=== PATIENT | female | born 1950 | race Caucasian/White ===

== ENCOUNTER 2022-02-26 14:36 | Outpatient (CLI) | payer MEDICARE, OTHER, SELFPAY ==
--- NOTE | ~2022-02-26 | DEXA_ITS ---
Bone Density Report Name: DIANN CAT Age: 71 Sex: Female Ethnicity: White Date of : 1950 Indication: postmenopausal; screening for osteoporosis; height loss; Referring Provider: NICOLE, MELQUIADES Study: Bone densitometry was performed. Exam Date: February 26, 2022 Accession number: [id number] Bone Density: Region BMD T-score Z-score Classification AP Spine(L1-L4) 0.930 -1.1 1.1 Osteopenia Femoral Neck (Left) 0.824 -0.2 1.6 Normal Total Hip (Left) 0.984 0.3 1.9 Normal Femoral Neck (Right) 0.815 -0.3 1.5 Normal Total Hip (Right) 0.970 0.2 1.7 Normal Total Hip Mean 0.977 0.3 1.8 Normal World Health Organization criteria for BMD impression classify patients as: Normal (T-score at or above -1.0), Osteopenia (T-score between -1.0 and -2.5), or Osteoporosis (T-score at or below -2.5). 10-year Fracture Risk(1): Major Osteoporotic Fracture 7.0% Hip Fracture 0.5% Reported Risk Factors: [place] (), Neck BMD=0.815, BMI=37.5 (1) FRAX(R) Version 3.08. Fracture probability calculated for an untreated patient. Fracture probability may be lower if the patient has received treatment. Clinical Information Provided by Patient: Has used the following medications: Vitamin D Patient maximum height was 62 Menopause Age: 51 No regular weight bearing exercise Onset of menses at age 13 Number of children 3 Impression: The patient has low bone mass, based on the Total Spine T-score. The patient has an estimated ten-year risk of hip fracture of 0.5% and an estimated ten-year risk of major fracture of 7%, based on the WHO FRAX algorithm. Discussion: BONE DENSITY IS LOW AT ONE OR MORE SKELETAL SITES. This patient's lowest T-score is low at one or more skeletal sites. It meets the World Health Organization's (WHO) criteria for ?low bone mass? (T-score between -1.0 and -2.5). The patient's 10-year risk of fracture as calculated by FRAX is less than the threshold where pharmacological therapy is recommended by the National Osteoporosis Foundation (NOF). However, all treatment decisions require clinical judgment and consideration of individual patient factors, including patient preferences, comorbidities, previous drug use, risk factors not captured in the FRAX model (e.g., frailty, falls, vitamin D deficiency, increased bone turnover, interval significant decline in bone density) and possible under or overestimation of fracture risk by FRAX. The patient should follow a healthful lifestyle (good nutrition with adequate calcium and vitamin D, and appropriate weight-bearing exercise). Follow-Up: Consider repeating this study in 2 to 3 years to reassess this patient's status, or sooner if there is some new clinical indication. Reported by: [facility] on 02/26/2022 2:58:00 PM.
== END 2022-02-26 14:37 | disposition home or self-care (01) ==
PROVIDERS: PCP Internal Medicine; Visit Provider Internal Medicine
DX: Z78.0 Asymptomatic menopausal state (principal); M85.88 Other specified disorders of bone density and structure, other site
CPT/HCPCS: 77080

== ENCOUNTER 2024-08-27 13:29 | Emergency (ER) | payer OTHER, MEDICARE, SELFPAY ==
--- NOTE | ~2024-08-27 | XR_ITS ---
XR facial bones min 3V DATE: 08/27/2024 14:36 INDICATION: Fall, injury TECHNIQUE: 4 views COMPARISON: None FINDINGS: No facial fracture. The paranasal sinuses are normally developed and aerated. The sella turcica appea rs normal. Normal alignment at included C1-C3. IMPRESSION: No evidence of facial fracture Reviewed, dictated and finalized at location A.
--- NOTE | ~2024-08-27 | XR_ITS ---
XR hand LT min 3V DATE: 08/27/2024 14:36 INDICATION: Fall. Hand injury, pain TECHNIQUE: 3 views COMPARISON: None FINDINGS: There is a comminuted fracture of the base of the fifth metacarpal bone with minimal medial displacement. No other fracture or dislocation is detected. There is polyarticular osteoarthritis involving particularly the first carpometacarpal joint, also th e triscaphe and multiple interphalangeal joints. IMPRESSION: Comminuted fracture of the base of the fifth metacarpal bone Polyarticular osteoarthritis Reviewed, dictated and finalized at location A.
--- NOTE | ~2024-08-27 | XR_ITS ---
XR shoulder LT min 2V DATE: 08/27/2024 14:36 INDICATION: Fall. Shoulder injury, pain TECHNIQUE: Neer and AP views COMPARISON: None FINDINGS: Normal alignment at the acromioclavicular and glenohumeral joints. No fracture or dislocati on, periosteal reaction or bone destruction or abnormal soft tissue calcification. IMPRESSION: Negative Reviewed, dictated and finalized at location A. IMPRESSION: Negative
[2024-08-27 13:46] VITALS: BP 170/58; PULSE 62; RESP 16; TEMP 36.9; O2SAT 98
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
[2024-08-27] MEDS: ACETAMINOPHEN 500 MG TABLET 1000 MG PO (14:00)
== END 2024-08-27 16:15 | disposition home or self-care (01) ==
PROVIDERS: Emergency Provider Nurse Practitioner Family; PCP Internal Medicine
DX: S62.92XA Unspecified fracture of left hand, initial encounter for closed fracture (principal); Z79.84 Long term (current) use of oral hypoglycemic drugs; Z79.899 Other long term (current) drug therapy; W01.0XXA Fall on same level from slipping, tripping and stumbling without subsequent striking against object, initial encounter
CPT/HCPCS: 70150; 73030; 73130; 99204; A4565; A9270; G0463

== ENCOUNTER 2024-08-30 11:05 | Outpatient (CLI) | payer MEDICARE, SELFPAY ==
--- NOTE | 2024-08-30 11:31 | ECG_ITS ---
Test Date: 2024-08-30 11:59:28 Measurements Intervals [place] Rate: 69 P: 55 ND: 152 QRS: 58 QRSD: 96 T: 48 QT: 398 QTc: 426 Interpretive Statements SINUS RHYTHM NONSPECIFIC T-WAVE ABNORMALITY POSSIBLE SEPTAL INFARCT, OLD No previous ECG available for comparison Electronically Signed On 08-30-2024 16:45:46 CDT by Ramo Hagan M.D.
[2024-08-30 13:17] LABS: Anion Gap 10 mmol/L (4-12); Blood Urea Nitrogen 13 mg/dL (7-17); Calcium 9.8 mg/dL (8.4-10.2); Carbon Dioxide 28 mmol/L (22-30); Chloride 101 mmol/L (98-107); Estimated Glomerular Filt Rate > 60; Glucose 145 mg/dL (65-110); Potassium 3.7 mmol/L (3.4-5.0); Sodium 139 mmol/L (137-145)
--- OUTSIDE RECORDS SUMMARY | 2024-08-30 13:17 | XMS_ITS | Referral Summary ---
Author Organization [facility] Address [address] [place] [address] Care Team Providers Care Industrial Health Engineer Name Role Phone Woody Pandey MD Primary Care Provider [phone]- [phone] Encounters Date Type Department Care Team Description 06/20/2024 3:15 PM HEATING AND COOLING TECHNICIAN Office Visit [facility] [address] [place] [address] Theodore Devlin MD Abnormal EKG (Primary Dx); Essential hypertension, benign from Last 3 Months Allergies No known active allergies Medications omeprazole (PriLOSEC) 20 mg capsule Take 1 capsule (20 mg total) by mouth daily 30 capsule 08/21/2021 Active ergocalciferol (VITAMIN D) 50,000 unit capsule Take 1 capsule (50,000 Units total) by mouth every 30 (thirty) days sundays08/28/2021 Active amLODIPine (NORVASC) 5 mg tablet Take 1 tablet (5 mg total) by mouth daily 90 tablet 1 02/28/2022 Active aspirin 81 mg enteric coated tabletIndicatio ns:prevention of thrombosis Take 1 tablet (81 mg total) by mouth daily Active rosuvastatin (CRESTOR) 10 mg tabletIndicatio ns:hyperlipidem ia Take 1 tablet (10 mg total) by mouth daily Active furosemide (LASIX) 20 mg tablet Take 1 tablet (20 mg total) by mouth daily for 5 days 5 tablet 12/28/2022 Active Active Problems Problem Noted Date Diagnosed Date Acute respiratory failure with hypoxia 3 Status post right knee replacement 12/26/2022 Status post total right knee replacement 023 Status post total left knee replacement 05/08/20 Preoperative clearance 01/20/2022 Abnormal EKG 01/20/2022 Essential hypertension, benign 01/20/2022 Obesity (BMI 35.0-39.9 without comorbidity) 01/06 Former smoker 01/20/2022 OA left knee-severe 07/03/2020 OA right knee-severe 07/03/2020 Social History Tobacco Use Types Packs/Day Years Used Date Smoking Tobacco: Former Cigarettes 4 15 1 972 - 1986 Smokeless Tobacco: Never Tobacco Cessation:Counseling Given: Not Answered Alcohol Use Standard Drinks/Week Comments Yes 0 (1 standard drink = 0.6 oz pur e alcohol) Social Connection and Isolat ion Panel [NHANES] Answer Date Recorded In a typical week, how many times do you talk on the phone with family, friends, or neighbors? More than three times a week 12/26/2022 How often do you get togethe r with friends or relatives? More than three times a week 12/26/2022 How often do you attend chur ch or confucianism services? Never 12/26/2022 Do you belong to any clubs o r organizations such as hoahaoism groups, unions, fraternal or athletic groups, or school groups? No 12/26/2022 How often do you attend meet ings of the clubs or organizations you belong to? Never 12/26/2022 Are you , , di vorced, , never , or living with a partner? 12/26/2022 AUDIT-C Answer Date Recorded Q1: How often do you have a drink containing alcohol? Never 05/08/2022 Q2: How many drinks containi ng alcohol do you have on a typical day when you are drinking? Patient does not drink Frequency of Binge Drinking Not on file 06/2021 Overall Financial Resource Strain (CARDIA) Answe r Date Recorded How hard is it for you to pa y for the very basics like food, housing, medical care, and heating? Not hard at all 12/26/2022 Hunger Vital Sign Answer Date Recorded Within the past 12 months, y ou worried that your food would run out before you got the money to buy more. Never true 12/27/19 Within the past 12 months, t he food you bought just didn't last and you didn't have money to get more. Never true 12/26/2022 PRAPARE - Transportation Answer Date Re corded In the past 12 months, has l ack of transportation kept you from medical appointments or from getting medications? No 12/07 In the past 12 months, has l ack of transportation kept you from meetings, work, or from getting things needed for daily living? No 12/26/2022 Housing Stability Vital Sign Answer Ashkan e Recorded In the last 12 months, was t here a time when you were not able to pay the mortgage or rent on time? No 12/26/2022 In the last 12 months, how many places have you lived? 1 12/26/2022 In the last 12 months, was t here a time when you did not have a steady place to sleep or slept in a skilled nursing (including now)? No 12/26/2022 Personal Safety Answer Date Recorded Have you ever been in or are you currently in a harmful physical or emotional relationship or is someone making you feel afraid or unsafe? Denies 12/25/2022 Comments No Sex and Gender Information Value Date Recorded Sex Assigned at Not on file Legal Sex Female 2:57 AM HEATING AND COOLING TECHNICIAN Gender Identity Not on file Sexual Orientation Not on file Last Filed Vital Signs Vital Sign Reading Time Taken Comments Blood Pressure 128/70 06/20/2024 3:36 PM HEATING AND COOLING TECHNICIAN Pulse 74 06/20/2024 3:36 PM HEATING AND COOLING TECHNICIAN Temperature 36.4 C (97.6 F) 12/28/2022 7:00 AM CDT Respiratory Rate 18 12/28/2022 7:00 AM CDT Oxygen Saturation 95% 12/28/2022 7:00 AM CDT Inhaled Oxygen Concentration - - Weight 90.8 kg (200 lb 3.2 oz) 06/20/2024 3:36 P M HEATING AND COOLING TECHNICIAN Height 152.4 cm (5') 06/20/2024 3:36 PM HEATING AND COOLING TECHNICIAN Body Mass Index 39.1 06/20/2024 3:36 PM HEATING AND COOLING TECHNICIAN Plan of Treatment Not on file Medical Devices Implanted Type Area Competitive Intelligence Manager Device Identifier Shelf Expiration Date Model / Serial / Lot [employer]el[employer] Legion [employer]c Posterior Stabilize Knee Left 3 Component [id number] - [id number] Implanted:Qty: 1 on 05/08/2022 by Billy Boss MD at [facility] [employer] [id number] 11/11/2029 [id number] / / [id number] [employer] Yanelis Ii 13mm 26mm Biconvex Knee Component Patellar Uhmwpe [id number] - [id number] Implanted:Qty: 1 on 05/08/2022 by Billy Boss MD at [facility] [employer] [id number] 01/05/2032 [id number] / / [id number] [employer] Legion 9mm Posterior Stabilized High Flexion Knee 1-2 Insert [id number] - [id number] Implanted:Qty: 1 on 05/08/2022 by Billy Boss MD at [facility] [employer] [id number] 08/08/2030 [id number] / / [id number] [employer]elis Ii Cemented Knee Left 2 Baseplate Tibial [id number] - [id number] Implanted:Qty: 1 on 05/08/2022 by Billy Boss MD at [facility] [employer] [id number] 07/22/2030 [id number] / / [id number] [employer] Simplex P Radiopaque Full Dose Cement Bone Sterile 6191-1-010 - [id number] Implanted:Qty: 1 on 05/08/2022 by Billy Boss MD at [facility] [employer] 11/05/2024 6191-1-010 / / [id number] [employer] Cement Posterior Stabilize Knee Right 3n Component Femoral [id number] - [id number] Implanted:Qty: 1 on 12/25/2022 by Billy Boss MD at [facility] Right: Knee [employer] [id number] 10/10/2030 [id number] / / [id number] [employer] Simplex P Radiopaque Full Dose Cement Bone Sterile 6191-1-010 - [id number] Implanted:Qty: 1 on 12/25/2022 by Billy Boss MD at [facility] Right: Knee [employer] [id number] 04/07/2025 6191-1-010 / / [id number] [employer]el[employer] Ii Cement Right Knee 2 Baseplate Tibial Titanium [id number] - [id number] Implanted:Qty: 1 on 12/25/2022 by Billy Boss MD at [facility] Right: Knee [employer] [id number] 02/19/2032 [id number] / / [id number] [employer] 10mm Posterior Stabilize High Flex Knee 47542 Insert [id number] - [id number] Implanted:Qty: 1 on 12/25/2022 by Billy Boss MD at [facility] Right: Knee [employer] [id number] 07/21/2027 [id number] / / [id number] [employer] Yanelis Ii 13mm 26mm Biconvex Knee Component Patellar Uhmwpe [id number] - [id number] Implanted:Qty: 1 on 12/25/2022 by Billy Boss MD at [facility] Right: Knee [employer] [id number] 09/21/2032 [id number] / / [id number] Procedures Procedure Name Priority Date/Time Associated Diagnosis Comments ECG 12-LEAD Routine 06/20/2024 3:56 PM HEATING AND COOLING TECHNICIAN Abnormal EKG EGFR Routine 04/18/2024 9:57 AM HEATING AND COOLING TECHNICIAN HEMOGLOBIN A1C Routine 04/18/2024 9:57 AM HEATING AND COOLING TECHNICIAN LIPID PANEL Routine 04/18/2024 9:57 AM HEATING AND COOLING TECHNICIAN DEXA AXIAL SKELETON BONE DENSITY 1 OR MORE SITES Schedule Routine, Read Routine (OP Routine) 03/15/2024 2:43 PM CDT Asymptomatic menopausal state SCREENING MAMMOGRAM BILATERAL W RIC Schedule Routine, Read Routine (OP Routine) 02/05/2024 2:30 PM CDT Encounter for screening mammogram for malignant neoplasm of breast from Last 3 Months or Most Recently Relevant to Health Maintenance Results * ECG 12 lead (06/20/2024 3:56 PM HEATING AND COOLING TECHNICIAN) Theodore Devlin MD ECG ORDERABLES Final Resul t * eGFR (04/18/2024 9:57 AM HEATING AND COOLING TECHNICIAN) eGFR 90 >=60 mL/min/1. 73 m2 Comment: Interpretive Data Reference Interval Normal >/= 90 mL/min/1.73m2 Mildly decreased* 60 - 89 mL/min/1.73m2 Mildly to moderately decreased 45 - 59 mL/min/1.73m2 Moderately to severely decreased 30 - 44 mL/min/1.73m2 Severely decreased 15 - 29 mL/min/1.73m2 Kidney Failure < 15 mL/min/1.73m2 *Relative to young adult level Estimated glomerular filtration rate is determined by the 2020 CKD-EPI equation recommended by the National Kidney Foundation (A Unifying Approach to GFR Estimation: Recommendations of the NKF-ASK Task Force on Reassessing the Inclusion of Race in Diagnosing Kidney Disease, JASN 202). The CKD-EPI equation should not be used for patients with unstable renal function and has not been validated in children and those over 70. Current interpretive data was last reviewed 2021. Blood 04/18/2024 9:57 AM HEATING AND COOLING TECHNICIAN 04/18/2024 10:03 AM HEATING AND COOLING TECHNICIAN Woody Pandey MD LAB BLOOD ORDERABLES Final Result Performing Organization Address [facility] Co de Phone Number LISA[address] [address] * (ABNORMAL) Hemoglobin A1c (04/18/2024 9:57 AM HEATING AND COOLING TECHNICIAN) Hgb A1C 7.1(H) 4.0 - 5.6 % Estimated Average Glucose 157 mg/dL FIDELINA Comment: The ADA recommends reporting an estimated Average Glucose (eAG) with all Hemoglobin A1c results using the equation derived from a study of 507 normal and diabetic adults. Minority populations were underrepresented and children were not included. (Diabetes Care 31:0825-1611, 2008). The eAG is not equivalent to a fasting glucose. Blood 04/18/2024 9:57 AM HEATING AND COOLING TECHNICIAN 04/18/2024 10:03 AM HEATING AND COOLING TECHNICIAN Woody Pandey MD LAB BLOOD ORDERABLES Final Result Performing Organization Address [facility] Co de Phone Number FIDELINA [address] [address] * Lipid panel (04/18/2024 9:57 AM HEATING AND COOLING TECHNICIAN) [facility] Cholesterol 160 30 - 199 mg/dL Comment: Interpretive Data Ages < or = 19 years Acceptable: <170 mg/dL Borderline high: 170-199 mg/dL High: >or= 200 mg/dL Ages > or = 20 years Desirable: <200 mg/dL Borderline high: 200-239 mg/dL High: >or= 240 mg/dL Literature References: 1. Expert Panel on Integrated Guidelines for Cardiovascular Health and Risk Reduction in Children and Adolescents. Pediatrics 2011;128:S213 2. NCEP Expert Panel. Circulation 2004;110:227 Current Interpretive Data was last revised on 2018. Triglycerides 134 <=149 mg/dL FIDELINA Comment: Interpretive Data Ages < or = 9 years Acceptable: <75 mg/dL Borderline high: 75-99 mg/dL High: >or= 100 mg/dL Ages 10 to 20 years Acceptable: <90 mg/dL Borderline high: 90-129 mg/dL High: >or= 130 mg/dL Ages > or = 20 years Desirable: <150 mg/dL Borderline high: 150-199 mg/dL High: 200-499 mg/dL Very high: >or= 499 mg/dL Literature References: 1. Expert Panel on Integrated Guidelines for Cardiovascular Health and Risk Reduction in Children and Adolescents. Pediatrics 2011;128:S213 2. NCEP Expert Panel. Circulation 2004;110:227 Current Interpretive Data was last revised on 2018. HDL 44 >=40 mg/dL FIDELINA Comment: Interpretive Data Ages < or = 19 years Acceptable: >45 mg/dL Borderline low: 40-45 mg/dL Low: <40 mg/dL Ages > or = 20 years Desirable: >or= 60 mg/dL Low: <40 mg/dL Literature References: 1. Expert Panel on Integrated Guidelines for Cardiovascular Health and Risk Reduction in Children and Adolescents. Pediatrics 2011;128:S213 2. NCEP Expert Panel. Circulation 2004;110:227 Current Interpretive Data was last revised on 2018. LDL, calculated 92 <=129 mg/dL FIDELINA Comment: Interpretive Data Ages < or = 19 years Acceptable: <110 mg/dL Borderline high: 110-129 mg/dL High: >or= 130 mg/dL Ages > or = 20 years Optimal: <100 mg/dL Near optimal: 100-129 mg/dL Borderline high: 130-159 mg/dL High: >160 mg/dL Calculated using the Srikanth LDL-C estimating equation. This equation was implemented on 2024. Prior to this date LDL-C was estimated using the Friedewald equation. Literature References: 1. Expert Panel on Integrated Guidelines for Cardiovascular Health and Risk Reduction in Children and Adolescents. Pediatrics 2011;128:S213 2. NCEP Expert Panel. Circulation 2004;110:227 3. Srikanth Waters al. JARRELL Cardiol. 2020 October 06;5(5):540-548. doi: 10.1001/jamacardio.2020.0013 Current Interpretive Data was last revised on 2024. Non-HDL Cholesterol 116 mg/dL FIDELINA Comment: Interpretive Data Ages < or = 19 years Acceptable: <120 mg/dL Borderline high: 120-144 mg/dL High: >145 mg/dL Ages > or = 20 years When triglycerides are >200 mg/dL, Non-HDL cholesterol is a secondary target of therapy with treatment goals that are 30 mg/dL greater than the LDL cholesterol target. Literature References: 1. Expert Panel on Integrated Guidelines for Cardiovascular Health and Risk Reduction in Children and Adolescents. Pediatrics 2011;128:S213 2. NCEP Expert Panel. Circulation 2004;110:227 Current Interpretive Data was last revised on 2018. Chol/HDL ratio 4 FIDELINA Blood 04/18/2024 9:57 AM HEATING AND COOLING TECHNICIAN 04/18/2024 10:03 AM HEATING AND COOLING TECHNICIAN us Woody Pandey MD LAB BLOOD ORDERABLES Final Result FIDELINA [address] Department [place] [address] * Dexa Axial Skeleton Bone Density 1 or 2 Site (03/15/2024 2:43 PM CDT) Anatomical Region Laterality Modality Body N/A Mammography 03/15/2024 6:11 PM CDT Narrative 03/15/2024 6:12 PM CDT EXAM DESCRIPTION: DEXA AXIAL SKELETON BONE DENSITY 1 OR MORE SITES REASON FOR STUDY: 73 y/o year old F with given history of: asymptomatic menopausal state Competitive Intelligence Manager/Model: [employer] A (S/N [id number]) CLINICAL INFORMATION: Current height: 60 inches Maximum height: 62 inches Weight: 203 pounds Risk factors: Postmenopausal COMPARISON: None available FINDINGS: AP LUMBAR SPINE L1-L4: Total BMD is 0.999 g/cm2 T-score is -0.4 LEFT HIP: Total BMD is 0.999 g/cm2 T-score is 0.5 Femoral neck BMD is 0.731 g/cm2 T-score is -1.1 FRAX: 10 year risk for a major osteoporotic fracture is 8.5 %, 10 year risk for a hip fracture is 1.0 % IMPRESSION: Low Bone Mass. REFERENCE: Bone mineral density: T-Score: Normal (T-score above or = -1.0) Low bone mass (T-score between -1.0 and -2.5) replaces the previously used term osteopenia Osteoporosis (T-score = or below -2.5) Z-Score: Within the expected range for age (Z-score above -2.0) Below the expected range for age (Z-score is -2.0 or below) Please see below follow up recommendations. Medical evaluation for secondary causes of low bone mineral density may be appropriate. FRAX is a World Health Organization validated fracture risk assessment tool that calculates a person's 10 year probability of a major osteoporosis related fracture and hip fracture. According to the National Osteoporosis Foundation guidelines, postmenopausal women and men age 50 or older with low bone mass and a 10 year probability of a major osteoporosis related fracture = or greater than 20% or a 10 year probability of a hip fracture = or greater than 3% should be considered for pharmacological treatment for the prevention of osteoporosis. For further information, including treatment recommendations, please refer to the 2019 ISCD Official Positions (http://www.iscd.org) and the NOF's Clinician's Guide to Prevention and Treatment of Osteoporosis (http://www.nof.org/professionals/clinical-guidelines) THIS IS AN ELECTRONICALLY VERIFIED FINAL REPORT 03/15/2024 6:12 PM - Electronically signed by Matt Leung M.D. MF: [email or web address] Report ID: [id number] Reading Location: [address] Note Matt Leung MD - 03/15/2024 EXAM DESCRIPTION: DEXA AXIAL SKELETON BONE DENSITY 1 OR MORE SITES REASON FOR STUDY: 73 y/o year old F with given history of:asymptomatic menopausal state Competitive Intelligence Manager/Model: [employer] A (S/N [id number]) CLINICAL INFORMATION: Current height: 60 inches Maximum height: 62 inches Weight: 203 pounds Risk factors: Postmenopausal COMPARISON: None available FINDINGS: AP LUMBAR SPINE L1-L4: Total BMD is 0.999 g/cm2 T-score is -0.4 LEFT HIP: Total BMD is 0.999 g/cm2 T-score is 0.5 Femoral neck BMD is 0.731 g/cm2 T-score is -1.1 FRAX: 10 year risk for a major osteoporotic fracture is 8.5 %, 10 year risk fora hip fracture is 1.0 % IMPRESSION: Low Bone Mass. REFERENCE: Bone mineral density: T-Score: Normal (T-score above or = -1.0) Low bone mass (T-score between -1.0 and -2.5) replaces thepreviously used term osteopenia Osteoporosis (T-score = or below -2.5) Z-Score: Within the expected range for age (Z-score above -2.0) Below the expected range for age (Z-score is -2.0 or below) Please see below follow up recommendations. Medical evaluation forsecondary causes of low bone mineral density may be appropriate. FRAX is a World Health Organization validated fracture risk assessmenttool that calculates a person's 10 year probability of a major osteoporosisrelated fracture and hip fracture. According to the National OsteoporosisFoundation guidelines, postmenopausal women and men age 50 or older with low bonemass and a 10 year probability of a major osteoporosis related fracture = or greater than 20% or a 10 year probability of a hip fracture = or greaterthan 3% should be considered for pharmacological treatment for the preventionof osteoporosis. For further information, including treatment recommendations, please referto the 2019 ISCD Official Positions (http://www.iscd.org) and the NOF's Clinician's Guide to Prevention and Treatment of Osteoporosis (http://www.nof.org/professionals/clinical-guidelines) THIS IS AN ELECTRONICALLY VERIFIED FINAL REPORT 03/15/2024 6:12 PM - Electronically signed by Matt Leung M.D. MF: [id number] Report ID: [id number] Reading Location: [id number] us Woody Pandey MD IMG DXA PROCEDURES Final R esult * Screening Mammogram Bilateral W Ric (02/05/2024 2:30 PM CDT) Anatomical Region Laterality Modality Breast Bilateral Mammography Impressions 02/05/2024 4:28 PM CDT BI-RADS ATLAS category (overall): 1 - Negative There is no mammographic evidence of malignancy. A 1 year screening mammogram is recommended. The patient has been or will be contacted. We recommend annual screening mammography for women at average risk of breast cancer beginning at age 40, based on guidelines of the [place] [employer] (ACR Practice Parameter for the Performance of Screening and Diagnostic Mammography) and [place] [employer]. For women with and elevated risk of breast cancer, please refer to the ACR Practice Parameter for specific screening recommendations. The patient will be entered into a reminder system with a target due date of 1 year for her next screening exam. Narrative 02/05/2024 4:28 PM CDT Screening Mammogram Bilateral W Ric: 02/05/24 The study was acquired using full field digital technology and interpreted from soft copy. 2D digital mammographic views, as well as 3D digital tomosynthesis were performed in the CC and MLO projections. CLINICAL: Encounter for screening mammogram for malignant neoplasm of breast. No relevant medical history has been documented for this patient. History of breast cancer in Neg Hx. COMPARISONS: 10/16/2021 Screening Mammogram Bilateral W Ric 07/06/2015 Screening Mammogram Bilateral W Ric BREAST TISSUE: There are scattered areas of fibroglandular density. FINDINGS: There is no new suspicious finding in either breast on mammogram. us Woody Pandey MD IMG MAMMO PROCEDURES Final Result from Last 3 Months or Most Recently Relevant to Health Maintenance Insurance [employer] MEDICARE [facility] MEDICARE Address: [facility] [id number] [place] [address] AET MEDICARE Advance Directives For more information, please contact: [phone] * Full Code (Latest Code Status on File) Date Activated Date Inactivated Comments 12/25/2022 1:23 PM 12/28/2022 6:45 PM * Full Code Date Activated Date Inactivated Comments 05/08/2022 3:23 PM 05/09/2022 4:49 PM Care Teams Industrial Health Engineer Relationship Specialty Start Date End Date Woody Pandey MD [address] [facility] [address] [place] [address] PCP - General Internal Medicine 06/05/20
--- OUTSIDE RECORDS SUMMARY | 2024-08-30 13:17 | XMS_ITS | Clinical Summary ---
Author Organization [facility] Address [address] [place] [address] Care Team Providers Care Ehs Engineer Name Role Phone Woody Pandey MD Primary Care Provider [phone] Allergies No known active allergies Medications omeprazole [...] Status post total left knee replacement 05/08/20 22 Preoperative clearance 01/20/2022 Abnormal EKG 01/20/2022 Essential hypertension, benign 01/20/2022 Obesity (BMI 35.0-39.9 without comorbidity) 01/06 Former smoker 01/20/2022 OA left knee-severe 07/03/2020 OA right knee-severe 07/03/2020 Encounters Date Type Department Care Team Description 06/20/2024 3:15 PM INVENTORY CONTROL MANAGER Office Visit [facility] [address] [place] [address] Theodore Devlin MD Abnormal EKG (Primary Dx); Essential hypertension, benign from Last 3 Months Surgical History Surgery Date Site/Laterality Comments CYST REMOVAL 06/08/1973 - 06/07/1974 Left lung TUBAL LIGATION VAGINAL DELIVERY three COLONOSCOPY ESOPHAGOGASTRODUODENOSCOPY 08/06/2021 - 09/05/2021 JOINT REPLACEMENT 05/08/2022 Left total knee JOINT REPLACEMENT 12/25/2022 Right total knee Medical History Medical History Date Comments GERD (gastroesophageal reflux disease) History of GI bleed 08/21/2021 Full dentures Osteoarthritis Bilateral cataracts wears glasse s Hypertension Tingling rt thumb only Toenail bruise 02/2022 something feel o n lt great toe, nail is blackened, improving, applies Ervin's vapor Rub daily to toe Wears glasses Hyperlipidemia Obesity Family History Medical History Relation Name Comments Diabetes Father Heart disease Father Heart disease Mother Breast cancer Neg Hx Relation Name Status Comments Child Alive Cousin Alive Father Maternal cousin Alive Mother Nephew Alive Niece Alive Paternal cousin Alive Social History Tobacco Use Types Packs/Day Years Used Date Smoking Tobacco: Former Cigarettes 4 15 1 972 - 1987 Smokeless Tobacco: Never Tobacco Cessation:Counseling Given: Not [...] 12/26/2022 How often do you attend chur or anglican services? Never 12/26/2022 Do you belong to any clubs o r organizations such as confucianist groups, unions, fraternal or athletic groups, or [...] money to buy more. Never true 12/27/19 23 Within the past 12 months, t he [...] place to sleep or slept in a half-way (including now)? No 12/26/2022 Personal Safety Answer Date Recorded Have you ever been in or are you currently in a harmful physical or emotional relationship or is someone making you feel afraid or unsafe? Denies 12/25/2022 Comments No Sex and Gender Information Value Date Recorded Sex Assigned at Not on file Legal Sex Female 2:57 AM INVENTORY CONTROL MANAGER Gender Identity Not on file Sexual Orientation Not on file Obstetrics History Para Term AB IAB SAB Ectopic Multiple Livin g Live Births 3 2 2 Date Outcome GA Total Labor Labor/2nd/3rd Weight Sex Type Anes PTL Malina A1 A5 Name Clin Term Term Last Filed Vital Signs Vital Sign Reading Time Taken Comments Blood Pressure 128/70 06/20/2024 3:36 PM INVENTORY CONTROL MANAGER Pulse 74 06/20/2024 3:36 PM INVENTORY CONTROL MANAGER Temperature 36.4 C (97.6 F) 12/28/2022 7:00 AM CDT Respiratory Rate 18 12/28/2022 7:00 AM CDT Oxygen Saturation 95% 12/28/2022 7:00 AM CDT Inhaled Oxygen Concentration - - Weight 90.8 kg (200 lb 3.2 oz) 06/20/2024 3:36 P M INVENTORY CONTROL MANAGER Height 152.4 cm (5') 06/20/2024 3:36 PM INVENTORY CONTROL MANAGER Body Mass Index 39.1 06/20/2024 3:36 PM INVENTORY CONTROL MANAGER Plan of Treatment Health Maintenance Due Date Last Done Comments Albumin Creatinine Ratio, Urine 1950 Colon Cancer Screening-Colonoscopy 1950 Depression Screening 1950 Hepatitis C Screening 1950 Dilated Eye Exam 1950 Foot Exam 1950 DTaP/Tdap/Td Vaccine (1 - Tdap) 11/25/1962 Hepatitis B Screening 11/25/1969 Zoster Vaccine (1 of 2) 11/25/2001 Well Visit 65+ 11/25/2016 Fall Risk Assessment 12/28/2023 12/27/2022 Covid-19 Vaccine (5 - 2023-2 5 season) 2024 03/06/2022, 08/28/2021, 02/06/2021, Additional history exists Influenza Vaccine (#1) 2024 Hemoglobin A1C 10/16/2024 04/18/2024 Breast Cancer Screening-Mammogram 02/04/2025 02/05/2024, 10/16/2021, 07/06/2015, Additional history exists Lipid Panel 04/18/2025 04/18/2024 eGFR 04/18/2025 04/18/2024, 07/2 08/2022, 12/26/2022, Additional history exists Osteoporosis Screening-Bone Density Scan 03/15/2026 03/15/2024 Pneumococcal vaccine 65+ Completed 08/28/2021 Medical Devices Implanted Type Area Cloth Mercerizing Supervisor Device Identifier Shelf Expiration Date Model / Serial / Lot [employer]Or tho Yanelis Ii Legion Spc Posterior Stabilize Knee Left 3 Component [id number] - [id number] Implanted:Qty: 1 on 05/08/2022 by Billy Boss MD at [facility] [employer] [id number] 11/11/2029 [id number] / / [id number] [employer] Yanelis Ii 13mm 26mm Biconvex Knee Component Patellar Uhmwpe [id number] - [id number] Implanted:Qty: 1 on 05/08/2022 by Billy Boss MD at [facility] [employer] [id number] 01/05/2032 [id number] / / [id number] [employer] Legion 9mm Posterior Stabilized High Flexion Knee 1-2 Insert [id number] - [id number] Implanted:Qty: 1 on 05/08/2022 by Billy Boss MD at [facility] [employer] [id number] 08/08/2030 [id number] / / [id number] [employer]Or tho Yaneils Ii Cemented Knee Left 2 Baseplate Tibial [id number] - [id number] Implanted:Qty: 1 on 05/08/2022 by Billy Boss MD at [facility] [employer] [id number] 07/22/2030 [id number] / / [id number] [employer] Simplex P Radiopaque Full Dose Cement Bone Sterile 6191-1-010 - [id number] Implanted:Qty: 1 on 05/08/2022 by Billy Boss MD at [facility] [employer] 11/05/2024 6191-1-010 / / [id number] [employer] Legion Cement Posterior Stabilize Knee Right 3n Component Femoral [id number] - [id number] Implanted:Qty: 1 on 12/25/2022 by Billy Boss MD at [facility] Right: Knee [employer] [id number] 10/10/2030 [id number] / / [id number] [employer] Simplex P Radiopaque Full Dose Cement Bone Sterile 6191-1-010 - [id number] Implanted:Qty: 1 on 12/25/2022 by Billy Boss MD at [facility] Right: Knee [employer] [id number] 04/07/2025 6191-1-010 / / [id number] [employer] Yanelis Ii Cement Right Knee 2 Baseplate Tibial Titanium [id number] - [id number] Implanted:Qty: 1 on 12/25/2022 by Billy Boss MD at [facility] Right: Knee [employer] [id number] 02/19/2032 [id number] / / [id number] [employer] Legion 10mm Posterior Stabilize High Flex Knee 46776 Insert [id number] - [id number] Implanted:Qty: 1 on 12/25/2022 by Billy Boss MD at [facility] Right: Knee [employer] [id number] 07/21/2027 [id number] / / [id number] [employer]Or tho Yanelis Ii 13mm 26mm Biconvex Knee Component Patellar Uhmwpe [id number] - [id number] Implanted:Qty: 1 on 12/25/2022 by Billy Boss MD at [facility] Right: Knee [employer] [id number] 09/21/2032 [id number] / / [id number] Procedures Procedure Name Priority Date/Time Associated Diagnosis Comments ECG 12-LEAD Routine 06/20/2024 3:56 PM INVENTORY CONTROL MANAGER Abnormal EKG EGFR Routine 04/18/2024 9:57 AM INVENTORY CONTROL MANAGER HEMOGLOBIN A1C Routine 04/18/2024 9:57 AM INVENTORY CONTROL MANAGER LIPID PANEL Routine 04/18/2024 9:57 AM INVENTORY CONTROL MANAGER DEXA AXIAL SKELETON BONE DENSITY 1 OR MORE SITES Schedule Routine, Read Routine (OP Routine) 03/15/2024 2:43 PM CDT Asymptomatic menopausal state SCREENING MAMMOGRAM BILATERAL W IFEANYI Schedule Routine, Read Routine (OP Routine) 02/05/2024 2:30 PM CDT Encounter for screening mammogram for malignant neoplasm of breast from Last 3 Months or Most Recently Relevant to Health Maintenance Results * ECG 12 lead (06/20/2024 3:56 PM INVENTORY CONTROL MANAGER) us Theodore Devlin MD ECG ORDERABLES Final Resul t * eGFR (04/18/2024 9:57 AM INVENTORY CONTROL MANAGER) eGFR 90 >=60 mL/min/1. 73 m2 Comment: [...] of Race in Diagnosing Kidney Disease, JASN 2020). The CKD-EPI equation should not be used for patients with unstable renal function and has not been validated in children and those over 70. Current interpretive data was last reviewed 2021. Blood 04/18/2024 9:57 AM INVENTORY CONTROL MANAGER 04/18/2024 10:03 AM INVENTORY CONTROL MANAGER us Woody Pandey MD LAB BLOOD ORDERABLES Final Result Performing Organization Address [facility] de Phone Number [address] [address] * (ABNORMAL) Hemoglobin A1c (04/18/2024 9:57 AM INVENTORY CONTROL MANAGER) Hgb A1C 7.1(H) 4.0 - 5.6 % Estimated Average Glucose 157 mg/dL FIDELINA Comment: The ADA recommends reporting an estimated Average Glucose (eAG) with all Hemoglobin A1c results using the equation derived from a study of 507 normal and diabetic adults. Minority populations were underrepresented and children were not included. (Diabetes Care 31:1924-0436, 2007). The eAG is not equivalent to a fasting glucose. Blood 04/18/2024 9:57 AM INVENTORY CONTROL MANAGER 04/18/2024 10:03 AM INVENTORY CONTROL MANAGER Woody Pandey MD LAB BLOOD ORDERABLES Final Result Performing Organization Address [facility] de Phone Number [address] [address] * Lipid panel (04/18/2024 9:57 AM INVENTORY CONTROL MANAGER) Cholesterol 160 30 - 199 mg/dL Comment: [...] 2004;110:227 3. Srikanth Waters al. JARRELL Cardiol. 2019October 06;5(5):540-548. doi: 10.1001/jamacardio.2020.0013 Current Interpretive Data was last revised on 2024. Non-HDL Cholesterol 116 mg/dL FIDELINA LOZANO Comment: Interpretive Data Ages < or = [...] revised on 2018. Chol/HDL ratio 4 FIDELINA LOZANO Blood 04/18/2024 9:57 AM INVENTORY CONTROL MANAGER 04/18/2024 10:03 AM INVENTORY CONTROL MANAGER us Woody Pandey MD LAB BLOOD ORDERABLES Final Result FIDELINA [address] Department [place] [address] * Dexa Axial Skeleton Bone Density 1 or 2 Site (03/15/2024 2:43 PM CDT) Anatomical Region Laterality Modality Body N/A Mammography 03/15/2024 6:11 PM CDT Narrative 03/15/2024 6:12 PM CDT EXAM DESCRIPTION: DEXA AXIAL SKELETON BONE DENSITY 1 OR MORE SITES REASON FOR STUDY: 73 y/o year old F with given history of: asymptomatic menopausal state Cloth Mercerizing Supervisor/Model: Oneflare A (S/N [id number]) CLINICAL INFORMATION: Current height: 60 inches Maximum [...] Matt Leung M.D. MF: DAVID Report ID: [id number] Reading Location: [place] [address] Procedure Note Matt Leung MD - 03/15/2024 EXAM DESCRIPTION: DEXA AXIAL SKELETON BONE DENSITY 1 OR MORE SITES REASON FOR STUDY: 73 y/o year old F with given history of:asymptomatic menopausal state Cloth Mercerizing Supervisor/Model: Oneflare A (S/N [id number]) CLINICAL INFORMATION: Current height: 60 inches Maximum [...] Matt Leung M.D. MF: DAVID Report ID: [id number] Reading Location: [id number] us Woody Pandey MD IMLes DXA PROCEDURES Final R esult * Screening Mammogram Bilateral W Ifeanyi (02/05/2024 2:30 PM CDT) Anatomical Region Laterality [...] age 40, based on guidelines of the [place] [employer] (ACR Practice Parameter for the Performance of Screening and Diagnostic Mammography) and [place] [employer]. For women with and elevated risk of breast cancer, please refer to the ACR Practice Parameter for specific screening recommendations. The patient will be entered into a reminder system with a target due date of 1 year for her next screening exam. Narrative 02/05/2024 4:28 PM CDT Screening Mammogram Bilateral W Ifeanyi: 02/05/24 The study was acquired using full [...] Hx. COMPARISONS: 10/16/2021 Screening Mammogram Bilateral W Ifeanyi 07/06/2015 Screening Mammogram Bilateral W Ifeanyi BREAST TISSUE: There are scattered areas of fibroglandular density. FINDINGS: There is no new suspicious finding in either breast on mammogram. Woody Pandey MD IMG MAMMO PROCEDURES Final Result from Last 3 Months or Most Recently Relevant to Health Maintenance Insurance [facility] MEDICARE [employer] [facility] Address: [address] [place] [address] Advance Directives For more information, please contact: [phone] * Full Code (Latest Code Status on File) Date Activated Date Inactivated Comments 12/25/2022 1:23 PM 12/28/2022 6:45 PM * Full Code Date Activated Date Inactivated Comments 05/08/2022 3:23 PM 05/09/2022 4:49 PM Care Teams Ehs Engineer Relationship Specialty Start Date End Date Woody Pandey MD [address] [place] [address] PCP - General Internal Medicine 06/05/20
== END 2024-08-30 11:06 | disposition home or self-care (01) ==
LOC: ANHLAB 11:07
PROVIDERS: PCP Internal Medicine; Visit Provider Anesthesiology
DX: Z01.812 Encounter for preprocedural laboratory examination (principal)
CPT/HCPCS: 36415; 80048; 93005

== ENCOUNTER 2024-09-01 09:11 | Day surgery (SDC) | payer MEDICARE, SELFPAY ==
[2024-08-29 15:04] VITALS: BMI 37.4
--- NOTE | ~2024-09-01 | XR_ITS ---
XR surgery orthopedic 09/01/2024 11:49 Indication: Closed reduction percutaneous pinning left fifth metacarpal TECHNIQUE: Fluoroscopy used during Closed reduction percutaneous pinning left fifth metacarpal perfo rmed by [Reza Back MD] on 09/01/2024. Fluoroscopy time of 23 seconds with 4 fluoroscop ic images captured. FINDINGS: Correlate with procedure note. IMPRESSION: Fluoroscopy used during Closed reduction percutaneous pinning left fifth metacarpal. Reviewed, dictated and finalized at location A.
--- NOTE | 2024-09-01 07:07 | P.OP_ITS ---
Procedure Note - Detailed Date of Procedure 09/01/24 Pre-op Diagnosis Left Fifth Metacarpal Fracture Post-op Diagnosis Same Procedure Performed crpp left 5th mc fx Surgeon Reza Back MD Cement Mason Apprentice yoel ellis pa-c Anesthesia MAC Description of Procedure INFORMED CONSENT: The patient was seen and examined and marked in the pre-op area.? The patient signed the consent form. PROCEDURE IN DETAIL:The patient taken back to OR on the stretcher in supine position. Time out performed with anesthesia, surgeon and staff agreeing on patient's name site and surgery to be performed SCDs were placed on the lower extremities and inflated. A tourniquet was placed on {left} upper extremity and antibiotics given IV After anesthesia administered sedation I injected {10}cc 1%lido with epi and 0.5% marcaine plain for ulnar and dorsal radial block and local anesthesia The?{left upper extremity}?was prepped and draped in sterile fashion the??{left upper extremity} was? exsanguinated with Esmarch bandage and tourniquet inflated to 250mmHg The mini C-arm was draped and brought into the field. The fracture was visualized and close reduction maneuvers confirmed the ability to reduce the fracture to a reasonable degree though this fracture reduction was unstable. I proceeded with percutaneous pinning. Two 0.045 K-wires were placed. The 1st wire was placed across the fracture in an ulnar to radial direction from the body of the 5th metacarpal into the fracture fragment and into the 4th metacarpal. The 2nd wire was placed across the main body of the 5th metacarpal base into the hamate. Multiple views of fluoroscopy were used to verify wire placement and fracture reduction. the joint surface appeared well maintained. Satisfied with the reduction and stability the pins were trimmed just below skin. A dressing of xeroform, 4x4, sudheer, and an ulnar gutter splint was applied and secured with an luana bandage after the tourniquet was let down noting the hand was warm and well perfused. The patient was then awaken from anesthesia and transferred to the recovery room in stable condition.? Complications - none EBL- 0cc Disposition - home in stable conditions Yoel Ellis PA-C was essential for positioning, retraction, fluoro, instrumentation and dressing placement [facility] Billing Surgery - Charge Forward: Surgery Billing ([id number] for yoel)
--- NOTE | 2024-09-01 07:07 | WPDHPUPDATE1 ---
History and Physical Update Update Date/Time: 09/01/24 07:07 Patient seen and examined in pre-operative holding area. No interval change in medical history or symptoms. Patient recalls previous discussion of benefits and alternatives to procedure. Continues to desire to proceed with closed possible open reduction and percutaneous pinning left fifth metacarpal base fracture . Reviewed procedure, post-op expectations and risks including but not limited to bleeding, infection, injury to tendon/nerve/vessel, decreased hand function, stiffness, RSD, no change or worsening of symptoms, malunion, nonunion. I discussed the possible use of assistants and their participation in the case. Patient stated understanding and signed the consent form wishing to proceed.
--- NOTE | 2024-09-01 10:16 | P.PNAN_ITS ---
Anes - Initial Pre Proc Eval Procedure: Operation Date: 09/01/24 11:30 Proposed Procedures p Closed Reduction Percutaneous Pinning Left Fifth Metacarpal - Reza Back MD Date/Time: 09/01/24 10:16 Surgeon: Reza Back MD Pre Op Diagnosis: Left Fifth Metacarpal Fracture Patient Data Age: 73 Gender: F Height: 1.52 m Weight: 87 kg Allergies Allergy/AdvReac Type Severity Reaction Status Date / Time No Known Allergies Allergy Verified 09/01/24 10:09 Home Medications ?Medication ?Instructions ?Recorded ?Confirmed ?Type amlodipine 2.5 mg tablet 2.5 mg PO DAILY 08/27/24 09/01/24 History amlodipine 5 mg tablet 5 mg PO DAILY 08/27/24 09/01/24 History hydrochlorothiazide 12.5 mg tablet 12.5 mg PO Q12H 08/27/24 09/01/24 History hydrocodone 5 mg-acetaminophen 325 1 tablet PO Q4H PRN pain #20 tabs 08/27/24 09/01/24 Rx mg tablet losartan 25 mg tablet 25 mg PO DAILY 08/27/24 09/01/24 History metformin 500 mg tablet,extended 500 mg PO BID 08/27/24 09/01/24 History release 24 hr omeprazole 20 mg capsule,delayed 20 mg PO .am 08/27/24 09/01/24 History release oxybutynin chloride 10 mg 10 mg PO DAILY 08/27/24 09/01/24 History tablet,extended release 24 hr rosuvastatin 10 mg tablet 10 mg PO DAILY 08/27/24 09/01/24 History cephalexin 500 mg capsule 500 mg PO Q12H #14 caps 09/01/24 Rx hydrocodone 5 mg-acetaminophen 325 1 tablet PO Q6H PRN pain #12 tabs 09/01/24 Rx mg tablet Patient hx anesthesia problems: none Family hx anesthesia problems: none Results Review: All pre-operative results and documents have been reviewed as part of the pre- operative evaluation. COUNTS INCLUDE 234 BEDS AT THE [facility] Past Medical History Medical History (Updated 09/01/24 @ 10:17 by Melvin Roman MD) HTN (hypertension) Diabetes Obesity Social History Social History Smoking status: Never smoker Second hand tobacco smoke exposure: No Alcohol intake: never Substance use: never Substance use type: does not use Living arrangements: with family Spiritual care concerns: No Anes - Eval Final PreProcedure Day of Procedure 09/01/24 10:16 Patient weight: obese Heart: regular rate and rhythm Lungs: clear to auscultation Airway: Mallampati scale class II Neurological: alert and oriented Last oral intake: >/= 8 hours ASA classification: III Emergent: no Anesthetic plan: proceed Anesthesia type and monitoring: general GIVS and standard monitoring Results Review: All pre-operative results and documents have been reviewed as part of the pre- operative evaluation. Informed Consent: The patient's anesthetic plan and its attendant risks and benefits were discussed with the patient/family/POA. Questions were solicited and answers provided to the satisfaction of the patient/family/POA.
[2024-09-01 10:20] VITALS: BP 145/68; PULSE 56; RESP 18; TEMP 36.8; O2SAT 98; BMI 37.8
[2024-09-01 10:39] LABS: Glucose Point of Care 105 mg/dl (65-105)
[2024-09-01] MEDS: LACTATED RINGERS 1,000 ML 30 ML IV CONT (10:40)
[2024-09-01] MEDS: ceFAZolin SODIUM 2 GM/20 ML SW SYRINGE IV PUSH (10:54)
--- OUTSIDE RECORDS SUMMARY | 2024-09-01 10:57 | XMS_ITS | Data Portability ---
Author Organization [facility] [place] , [facility] Address [address] [place] [address] Assessment No assessment recorded. Plan of Treatment Reminders Order Date Submit Date Provider Last Modified By Organization Details Last Modified Time Details Appointments None recorded. Lab culture, urine 2021 [employer] [facility], [address] [place], [address], 22:47:56 urinalysis, dipstick 2021 [facility], [address] [place], [address], 13:21:24 HPV E6+E7 mRNA, qualitative PCR, cervix 2021 [facility], [address] [place] [address], [address], 15:18:42 pap, LB 2021 [employer] [facility], [address] [place], [address], 16:28:23 Referral None recorded. Procedures None recorded. Surgeries None recorded. Imaging None recorded. Medication Orders oxybutynin chloride ER 5 mg tablet,exte nded release 24 hr 2021 [id number], [address] [place], [address], 13:21:29 Patient TargetsNo targets recorded. Patient Instructions Encounter Date Encounter Id Patient Instructions Last Modified By Organization Details Last Modified Time 10/10/2021 [id number] A healthy lifestyle: care instructions Not available 10/10/2021 13:21:25 substance use disorder: care instructions Not available 10/10/2021 13:21:24 calcium and vitamin D combination Not available 10/10/2021 13:21:25 depression (wome n only) Not available 10/10/2021 13:21:25 eating healthy foods: care instructions Not available 10/10/2021 13:21:25 exercise program : getting started Not available 10/10/2021 13:21:25 learning about colonoscopy Not available 10/10/2021 13:21:24 protect bone wit h calcium and vitamin D Not available 10/10/2021 13:21:25 osteoporosis education Not available 10/10/2021 13:21:25 Reason for Referral None Reported. Results Created Date Observation Date Name Description Value Unit Range Abnormal Flag Note LastModifiedBy Organization Detail LastModifiedTime 10/11/19 22 10/11/2021 HPV HIGH RISK HPV high risk Negati ve negati ve normal The HPV High Risk assay is inten ded for use as co-te sting with cytol ogy and not as a subst itute for regul ar cervi bay cytol ogy scree will. This assay is not inten ded for use as a scree will devic e for women under age 30 with dao l cervi bay cytol ogy. Not Available [facility] [address] [place], [address], 10/11/2021 15:18:42 10/11/19 22 10/11/2021 CULTU RE, URINE , ROUTI NE culture, urine, routine SEE NOTE CULTU RE, URINE , ROUTI NE Micro Numbe r: [id number] Test Statu s: Final Speci men Sourc e: Urine , clean catch Speci men Quali ty: Adequ ate Resul t: Less than 10,00 0 CFU/m L of singl e Gram negat enrique organ ism isola sana. No furth er testi ng will be perfo rmed. If clini nirali indic ated, recol lecti on using a metho d to minim ize conta minat ion, with promp t trans natasha to Urine Cultu re Trans port Tube, is recom farheen d. Not Available [address], [address], 10/11/2021 22:47:56 10/11/19 22 10/14/2021 THINP REP TIS PAP clinical information: normal Infor matio n not provi ded Not Available [address], [address], 10/14/2021 16:28:22 10/11/19 22 10/14/2021 THINP REP TIS PAP LMP: normal NONE GIVEN Not Available [address], [address], 10/14/2021 16:28:22 10/11/19 22 10/14/2021 THINP REP TIS PAP prev. Pap: normal NONE GIVEN Not Available [address], [address], 10/14/2021 16:28:22 10/11/19 22 10/14/2021 THINP REP TIS PAP prev. BX: normal NONE GIVEN Not Available [address], [address], 10/14/2021 16:28:22 10/11/19 22 10/14/2021 THINP REP TIS PAP source: normal Cervi x Not Available [address], [address], 10/14/2021 16:28:22 10/11/19 22 10/14/2021 THINP REP TIS PAP statement of adequacy: normal Satis facto ry for evalu ation . Endoc ervic al/tr ansfo rmati on zone compo nent absen t. Age and/o r menst rual statu s not provi ded Not Available [place] [address] [address] [place], [address], 10/14/2021 16:28:22 10/11/19 22 10/14/2021 THINP REP TIS PAP interpretati on/result: normal Negat enrique for intra epith elial lesio n or malig eliceo . Not Available [address] [address] [place], [address], 10/14/2021 16:28:22 10/11/19 22 10/14/2021 THINP REP TIS PAP comment: normal This Pap test has been evalu ated with compu lopez techn ology . Not Available [address] [address] [place], [address], 10/14/2021 16:28:22 10/11/19 22 10/14/2021 THINP REP TIS PAP cytotechnolo gist: normal BKA, CT( CP) CT scree will locat ion: [place] [address] [place] [address] Not Available [address], [address], 10/14/2021 16:28:22 10/11/19 22 10/14/2021 THINP REP TIS PAP comment EXPLA NATOR Y NOTE: The Pap is a scree will test for cervi bay cance r. It is not a diagn ostic test and is subje ct to false negat enrique and false posit enrique resul ts. It is most relia ble when a satis facto ry sampl e, regul kassi obtai tressa, is submi tted with relev ant clini bay findi ngs and histo ry, and when the Pap resul t is evalu ated along with histo piedad and curre nt clini bay infor matio n. Not Available [address] [address] [place], [address], 10/14/2021 16:28:22 10/11/19 22 10/10/2021 urina lysis , dipst ick Leukocytes Small Not Available [place] [address], [place], [address], 10/10/2021 13:03:56 10/11/19 22 10/10/2021 urina lysis , dipst ick Nitrite negati ve Not Available [place] [address], [place], [address], 10/10/2021 13:03:56 10/11/19 22 10/10/2021 urina lysis , dipst ick Protein Trace Not Available [place] [address], [place], [address], 10/10/2021 13:03:56 10/11/19 22 10/10/2021 urina lysis , dipst ick pH 6.0 Not Available [place] [address], [place], [address], 10/10/2021 13:03:56 10/11/19 22 10/10/2021 urina lysis , dipst ick Blood Negati ve Not Available [place] [address], [place], [address], 10/10/2021 13:03:56 10/11/19 22 10/10/2021 urina lysis , dipst ick Specific Larimore 1.000 Not Available [place] [address], [place], [address], 10/10/2021 13:03:56 10/11/19 22 10/10/2021 urina lysis , dipst ick Ketone Trace Not Available [place] [address], [place], [address], 10/10/2021 13:03:56 10/11/19 22 10/10/2021 urina lysis , dipst ick Bilirubin Negati ve Not Available [address], [address], 10/10/2021 13:03:56 10/11/19 22 10/10/2021 urina lysis , dipst ick Glucose Negati ve Not Available [address], [place], [address], 10/10/2021 13:03:56 10/11/19 22 10/10/2021 urina lysis , dipst ick Appearance Clear Not Available [address], [place], [address], 10/10/2021 13:03:56 10/11/19 22 10/10/2021 urina lysis , dipst ick Color Yellow Not Available [address], [place], [address], 10/10/2021 13:03:56 Result Notes None recorded. Problems Name Problem SNOMED Code Status Onset Date Resolution Date Notes Provider Name and Address Organization Details Recorded Time Blood in urine 16504627 Active 2014 Gross hematuria ; Location: None Progress: Stable Added By: Meg Winkler Add to Current Problems: YES ProblemSt atus: Current Not Available [facility] 2 21:53:02 Postmeno pausal bleeding 41442641 Completed 201408/18/2014 Postmenop ausal vaginal bleeding; Progress: Stable Added By: Adamaris Mckeon Add to Current Problems: NO ProblemSt atus: Resolve Not Available [facility] 2 21:53:02 Problem Notes None recorded. Procedures Surgical History Date Name Laterality Status Provider Name and Address Organization Details Recorded Time 4 Date of Last Pap Smear completed [facility] 10/08/2021 13:30:57 4 Most Recent Mammogram completed Frances Stoner [facility] [place] 10/08/2021 13:31:11 ligation of bilateral fallopian tubes completed Frances Stoner [facility] [employer] [facility] 10/08/2021 13:32:42 procedure on lung completed Frances Stoner [facility] [employer] [facility] 10/08/2021 13:33:16 Imaging Results None recorded. Procedure Notes None recorded. Medical Equipment None Reported. Allergies No known drug allergies Medications Name Sig Start Date Stop Date Status Note LastModified by Organization Details LastModified Time amlodipine 2.5 mg tablet TAKE 1 TABLET BY MOUTH EVERY DAY IN THE MORNING active Not Available Not Available No t Available tramadol 50 mg tablet TAKE 1 TABLET EVERY 12 HOURS BY ORAL ROUTE NEEDED. 10/10 completed Not Available Not Available Not Available acetaminoph en 500 mg tablet TAKE 1 TABLET EVERY 6 HOURS BY ORAL ROUTE AROUND THE CLOCK 10/10 completed Not Available Not Available Not Available meloxicam 7.5 mg tablet TAKE 1 TABLET BY MOUTH EVERY DAY 10/10 completed Not Available Not Available Not Available famotidine 20 mg tablet TAKE 1 TABLET BY MOUTH EVERYDAY AT BEDTIME 10/10 completed Not Available Not Available Not Available oxybutynin chloride ER 5 mg tablet,exte nded release 24 hr TAKE 1 TABLET BY MOUTH EVERY DAY active Not Available Not Available No t Available omeprazole 20 mg capsule,del ayed release TAKE 1 CAPSULE BY MOUTH EVERY DAY IN THE MORNING active Not Available Not Available No t Available ergocalcife rol (vitamin D2) 1,250 mcg (50,000 unit) capsule TAKE 1 CAPSULE EVERY WEEK BY ORAL ROUTE. active Not Available Not Available No t Available diclofenac 1 % topical gel APPLY 2 GRAMS TO THE AFFECTED AREA(S) BY TOPICAL ROUTE 4 TIMES PER DAY 10/10 completed Not Available Not Available Not Available Vitals Date Recorded Body height Body mass index (BMI) Body weight Provider Name and Address Organization Details Last Updated DateTime 10/10/2021 154.94 cm 37.2 kg/m2 66041.34 g Darline Barrett [facility] [place] 10/10/2021 12:54:39 Social History Question Answer Notes LastModified by Organizat ion Details LastModified Time Tobacco Smoking Status Former [facility] [place] 10/08/2021 13:34:07 What Is Your Level Of Alcohol Consumption? None Information not available 10/08/2021 When Did You Quit Smoking? 17+yearssinc elastcigaret te 1986 Information not available 10/08/2021 How Many Children Do You Have? 2 Information not available 10/08/2021 What Is Your Relationship Status? ildefonso Information not available 10/10/2021 Are You Sexually Active? Yes Information not available 10/08/2021 Do You Use Any Illicit Or Recreational Drugs? No Information not available 10/08/2021 Do You Or Have You Ever Used Any Other Forms Of Tobacco Or Nicotine? No Information not available 10/08/2021 Sex: Unknown Functional Status None recorded. Mental Status None recorded. Family History Relationship Description Onset Age of this Age Resolved Age Notes LastModified by Organization Details LastModified Time Father Family history of diabetes mellitus type 2 Not available 2021 13:32:28 Medical History Condition Response High Blood Pressure N Kidney Stones N Blood Diseases N Cytomegalovirus N Hyperthyroidism N Blood Transfusion N MRSA N Depression N COPD N Incontinence N Anxiety Disorder N Muscle, Joint, or Bone Problems N Autoimmune disease N Obesity N Vision or Eye Problems N Arthritis N Auditory Hallucinations N Polycystic Ovarian Syndrome N Mental Disorder N Hematuria N Varicosities N Stroke N Crohn's Disease N Seasonal allergies N Alzheimer's/Dementia N COPD/Emphysema N History of Abnormal Pap N Fibromyalgia N Kidney Infection N Kidney Disease N Gallbladder disease N Von Willebrand disease N Ear or Hearing Problems N Hospitalizations N Learning Disorder N Eating Disorder N Skin Problems N Diabetes Mellitus (non-insulin dependent ) N Ovarian Problems N MRSA exposure N Constipation N Brain Injury N Frequent Urinary Tract infections N Osteopenia N GERD (reflux) N Visual Hallucinations N Diabetes (insulin dependent) N Tuberculosis N AIDS/HIV N Heart Attack N Asthma N Endometrial Cancer N GERD/Reflux N Hepatitis N Pulmonary Embolism N Chronic Ear Infections N RPR N Chicken Pox N Autism Spectrum Disorder (ASD) N Other Cancer N Thyroid Disease N Colon Cancer N Breast Cancer N Herpes (HSV) N Lung Cancer N Hypothyroidism N Developmental or Behavioral Disorders N Difficulty Swallowing N Panic Attacks N Neurological Disorder N Deep Vein Thrombosis N Meniere's disease N Shingles N Tuberculosis/Positive PPD N Cervical Cancer N Chlamydia N HPV/Genital Warts N Endometriosis N IBS (Irritable Bowel Syndrome) N Bladder or Kidney Problems N High Cholesterol N Liver Disease N Psychiatric/Mental Health Condition N Schizophrenia N Ulcer N Allergies/Hayfever N HIV N Sickle Cell Disease/Trait N ADD/ADHD N Anemia N Multiple Sclerosis N Gonorrhea N Headaches/migraines N Mental Illness N Ovarian Cancer N Bedwetting N Seizures/Epilepsy N Fibroids N Amnesia N Congestive Heart Failure (CHF) N Diverticulitis N Lupus N Rubella N Blood Clotting Disorder N Bipolar Disorder N Reflux/GERD N Diabetes Mellitus (during ) N Ulcerative Colitis N Heart Disease N Tourette Syndrome N Osteoporosis N Gynecological History Statement/Question Response If Post Menopausal, Age at Menopause 59 Date of LMP Most Recent Bone Density Date of Last Pap Smear 04/20/2014 Most Recent Mammogram 04/08/2014 Current Control Method Menopause Age at Menarche Obstetrics History GPAL:G 3 P 3 0 0 2 Type Value Multiple Births 0 Full Term 3 Induced 0 Spontaneous 0 Premature 0 Living 2 Ectopics 0 Total 3 Past Encounters Encounter ID Performer Location Encounter Start Date Encounter Closed Date Diagnosis/Indication Diagnosis SNOMED-CT Code Diagnosis ICD10 Code Diagnosis Note [id number] Luzma Escalante MD [facility] [address] [place] [address] 10/10/2021 12:37:41 10/10/2021 14:31:03 Gynecologic examination 34576791 Z01.419 lose weight recommende d Screening for malignant neoplasm of cervix 871792120 Z12.4 Screening for malignant neoplasm of breast 241710307 Z12.39 mammogram scheduled Screening colonoscopy 44 [address]999[address]12[address] Tello Menopause present 249245 006 N95.1 bone density scheduled Urinary incontinence 165 625013 R32 mixed incontinen ce. Not interested in surgery. Try oxybutinin for quality of life improvment Health Concerns Section Related Observation LastModified by Organization Detai ls LastModified Time None Recorded Concern Status LastModified by Organization Details LastModified Time None Recorded Advance Directives Directive None Recorded Payers Encounter Date Sequence Insurance Name Policy Number Policy [place] Covered Member ID [place] Member ID Guarantor Name 10/10/2021 1 [place] Beatriz Callahan [id number] Beatriz Callahan 10/10/2021 2 [facility]EN[facility] PLAN - OPEN ACCESS PLUS Mel Callahan [id number] Beatriz Callahan Notes Date Note Type Note Provider Name and Address Organization Details Recorded Time 10/10/2021 text/html Annual [employer] Post-MenopausalRep orted bypatient.Menopaus al Symptoms:no menopausal symptoms Vaginal Bleeding:history of menopause having occurred Urinary Symptoms:no hematuria; no nocturia;incontine nce(daily. difficulty getting to bathroom in time due to knees. Unwilling to have joint replacement. States she is wearing diapers. drinks a lot of water.);stress incontinence;urge incontinence Vulva:no genital lesion Vagina:normal vaginal discharge Breast:no breast lump; no nipple discharge; no breast pain Sexual Complaints:no sexual complaints Psychological Symptoms:no depression; no anxiety Luzma Escalante MD [address] [place], [address], [facility] 10/10/2021 13:21:49 OBGyn Episode No OBEpisode recorded.
--- OUTSIDE RECORDS SUMMARY | 2024-09-01 10:57 | XMS_ITS | Referral Summary ---
Author Organization [facility] Address [address] [place] [address] Care Team Providers Care Industrial Safety And Health Specialist Name Role Phone Woody Pandey MD Primary Care Provider [phone]- [phone] Encounters Date Type Department Care Team Description 06/20/2024 3:15 PM GEOPHYSICS TEACHER Office Visit [facility] Cardiology [address] [place] [address] Theodore Devlin MD Abnormal EKG [...] often do you attend chur ch or mu-ism services? Never 12/26/2022 Do you belong to any clubs o r organizations such as quaker groups, unions, fraternal or athletic groups, or [...] place to sleep or slept in a [place] facility (including now)? No 12/26/2022 Personal Safety Answer Date Recorded Have you ever been in or are you currently in a harmful physical or emotional relationship or is someone making you feel afraid or unsafe? Denies 12/25/2022 Comments No Sex and Gender Information Value Date Recorded Sex Assigned at Not on file Legal Sex Female 2:57 AM GEOPHYSICS TEACHER Gender Identity Not on file Sexual Orientation Not on file Last Filed Vital Signs Vital Sign Reading Time Taken Comments Blood Pressure 128/70 06/20/2024 3:36 PM GEOPHYSICS TEACHER Pulse 74 06/20/2024 3:36 PM GEOPHYSICS TEACHER Temperature 36.4 C (97.6 F) 12/28/2022 7:00 AM CDT Respiratory Rate 18 12/28/2022 7:00 AM CDT Oxygen Saturation 95% 12/28/2022 7:00 AM CDT Inhaled Oxygen Concentration - - Weight 90.8 kg (200 lb 3.2 oz) 06/20/2024 3:36 P M GEOPHYSICS TEACHER Height 152.4 cm (5') 06/20/2024 3:36 PM GEOPHYSICS TEACHER Body Mass Index 39.1 06/20/2024 3:36 PM GEOPHYSICS TEACHER Plan of Treatment Not on file Medical Devices Implanted Type Area Operations Director Device Identifier Shelf Expiration Date Model / Serial / Lot [employer]Or tho Yanelis Ii Legion Spc Posterior Stabilize Knee Left 3 Component [id number] - [id number] Implanted:Qty: 1 on 05/08/2022 by Billy Boss MD at [place] [facility] [employer]o [id number] 11/11/2029 [id number] / / [id number] [employer]/Or tho Yanelis Ii 13mm 26mm Biconvex Knee Component Patellar Uhmwpe [id number] - [id number] Implanted:Qty: 1 on 05/08/2022 by Billy Boss MD at [place] [facility] [employer]o [id number] 01/05/2032 [id number] / / [id number] [employer]Or tho Legion 9mm Posterior Stabilized High Flexion Knee 1-2 Insert [id number] - [id number] Implanted:Qty: 1 on 05/08/2022 by Billy Boss MD at [place] [facility] [employer]o [id number] 08/08/2030 [id number] / / [id number] [employer]/Or tho Yanelis Ii Cemented Knee Left 2 Baseplate Tibial [id number] - [id number] Implanted:Qty: 1 on 05/08/2022 by Billy Boss MD at [place] [facility] [employer] [id number] 07/22/2030 [id number] / / [id number] [employer] Simplex P Radiopaque Full Dose Cement Bone Sterile 6191-1-010 - [id number] Implanted:Qty: 1 on 05/08/2022 by Billy Boss MD at [place] [facility] [employer] 11/05/2024 6191-1-010 / / [id number] [employer]Or tho Legion Cement Posterior Stabilize Knee Right 3n Component Femoral [id number] - [id number] Implanted:Qty: 1 on 12/25/2022 by Billy Boss MD at [place] [facility] Right: Knee [employer]o [id number] 10/10/2030 [id number] / / [id number] [employer] Simplex P Radiopaque Full Dose Cement Bone Sterile 6191-1-010 - [id number] Implanted:Qty: 1 on 12/25/2022 by Billy Boss MD at [place] [facility] Right: Knee [employer] [id number] 04/07/2025 6191-1-010 / / [id number] [employer]/Or tho Yanelis Ii Cement Right Knee 2 Baseplate Tibial Titanium [id number] - [id number] Implanted:Qty: 1 on 12/25/2022 by Billy Boss MD at [place] [facility] Right: Knee [employer]o [id number] 02/19/2032 [id number] / / [id number] [employer]/Or tho Legion 10mm Posterior Stabilize High Flex Knee 37973 Insert [id number] - [id number] Implanted:Qty: 1 on 12/25/2022 by Billy Boss MD at [place] [facility] Right: Knee [employer]o [id number] 07/21/2027 [id number] / / [id number] [employer]/Or tho Yanelis Ii 13mm 26mm Biconvex Knee Component Patellar Uhmwpe [id number] - [id number] Implanted:Qty: 1 on 12/25/2022 by Billy Boss MD at [place] [facility] Right: Knee [employer]o [id number] 09/21/2032 [id number] / / [id number] Procedures Procedure Name Priority Date/Time Associated Diagnosis Comments ECG 12-LEAD Routine 06/20/2024 3:56 PM GEOPHYSICS TEACHER Abnormal EKG EGFR Routine 04/18/2024 9:57 AM GEOPHYSICS TEACHER HEMOGLOBIN A1C Routine 04/18/2024 9:57 AM GEOPHYSICS TEACHER LIPID PANEL Routine 04/18/2024 9:57 AM GEOPHYSICS TEACHER DEXA AXIAL SKELETON BONE DENSITY 1 OR [...] * ECG 12 lead (06/20/2024 3:56 PM GEOPHYSICS TEACHER) Theodore Devlin MD ECG ORDERABLES Final Resul t * eGFR (04/18/2024 9:57 AM GEOPHYSICS TEACHER) eGFR 90 >=60 mL/min/1. 73 m2 Comment: [...] last reviewed 2021. Blood 04/18/2024 9:57 AM GEOPHYSICS TEACHER 04/18/2024 10:03 AM GEOPHYSICS TEACHER Woody Pandey MD LAB BLOOD ORDERABLES Final Result Performing Organization Address [facility] Co de Phone Number [address] [address] * (ABNORMAL) Hemoglobin A1c (04/18/2024 9:57 AM GEOPHYSICS TEACHER) Hgb A1C 7.1(H) 4.0 - 5.6 % Estimated Average Glucose 157 mg/dL FIDELINA Comment: The ADA recommends reporting an estimated Average Glucose (eAG) with all Hemoglobin A1c results using the equation derived from a study of 507 normal and diabetic adults. Minority populations were underrepresented and children were not included. (Diabetes Care 31:4189-2832, 2008). The eAG is not equivalent to a fasting glucose. Blood 04/18/2024 9:57 AM GEOPHYSICS TEACHER 04/18/2024 10:03 AM GEOPHYSICS TEACHER Woody Pandey MD LAB BLOOD ORDERABLES Final Result Performing Organization Address [facility] Co de Phone Number FIDELINA [address] [address] * Lipid panel (04/18/2024 9:57 AM GEOPHYSICS TEACHER) [facility] Cholesterol 160 30 - 199 mg/dL Comment: [...] ratio 4 FIDELINA Blood 04/18/2024 9:57 AM GEOPHYSICS TEACHER 04/18/2024 10:03 AM GEOPHYSICS TEACHER us Woody Pandey MD LAB BLOOD ORDERABLES Final Result FIDELINA [address] Department [place] [address] * Dexa Axial Skeleton Bone Density 1 or 2 Site (03/15/2024 2:43 PM CDT) Anatomical Region Laterality Modality Body N/A Mammography 03/15/2024 6:11 PM CDT Narrative 03/15/2024 6:12 PM CDT EXAM DESCRIPTION: DEXA AXIAL SKELETON BONE DENSITY 1 OR MORE SITES REASON FOR STUDY: 73 y/o year old F with given history of: asymptomatic menopausal state Operations Director/Model: [employer] A (S/N [id number]) CLINICAL INFORMATION: Current height: 60 inches Maximum [...] Matt Leung M.D. MF: DAVID Report ID: [id number] Reading Location: [address] Note Matt Leung MD - 03/15/2024 EXAM DESCRIPTION: DEXA AXIAL SKELETON BONE DENSITY 1 OR MORE SITES REASON FOR STUDY: 73 y/o year old F with given history of:asymptomatic menopausal state Operations Director/Model: [employer] A (S/N [id number]) CLINICAL INFORMATION: Current height: 60 inches Maximum [...] Matt Leung M.D. MF: DAVID Report ID: [id number] Reading Location: [id number] us Woody Pandey MD IMG DXA PROCEDURES [...] age 40, based on guidelines of the [place] [employer] (ACR Practice Parameter for the Performance of Screening and Diagnostic Mammography) and [place] [employer]. For women [...] Relevant to Health Maintenance Insurance AETNA MEDICARE AET MEDICARE Advance Directives For more information, please contact: [phone] * Full Code (Latest Code Status on File) Date Activated Date Inactivated Comments 12/25/2022 1:23 PM 12/28/2022 6:45 PM * Full Code Date Activated Date Inactivated Comments 05/08/2022 3:23 PM 05/09/2022 4:49 PM Care Teams Industrial Safety And Health Specialist Relationship Specialty Start Date End Date Woody Pandey MD [address] [facility] [address] [place] [address] PCP - General Internal Medicine 06/05/20
--- OUTSIDE RECORDS SUMMARY | 2024-09-01 10:57 | XMS_ITS | Clinical Summary ---
Author Organization [facility] Address [address] [place] [address] Care Team Providers Care Acct Exec Name Role Phone Woody Pandey MD Primary Care Provider +1- [phone] Allergies No known active allergies Medications omeprazole [...] Department Care Team Description 06/20/2024 3:15 PM BELL CAPTAIN Office Visit [facility] Cardiology [address] [place] [address] Theodore Devlin MD Abnormal EKG [...] How often do you attend chur or jew services? Never 12/26/2022 Do you belong to any clubs o r organizations such as sabianist groups, unions, fraternal or athletic groups, or [...] place to sleep or slept in a jail (including now)? No 12/26/2022 Personal Safety Answer Date Recorded Have you ever been in or are you currently in a harmful physical or emotional relationship or is someone making you feel afraid or unsafe? Denies 12/25/2022 Comments No Sex and Gender Information Value Date Recorded Sex Assigned at Not on file Legal Sex Female 2:57 AM BELL CAPTAIN Gender Identity Not on file Sexual Orientation Not on file Obstetrics History Para Term AB IAB SAB Ectopic Multiple Livin g Live Births 3 2 2 Date Outcome GA Total Labor Labor/2nd/3rd Weight Sex Type Anes PTL Malina A1 A5 Name Clin Term Term Last Filed Vital Signs Vital Sign Reading Time Taken Comments Blood Pressure 128/70 06/20/2024 3:36 PM BELL CAPTAIN Pulse 74 06/20/2024 3:36 PM BELL CAPTAIN Temperature 36.4 C (97.6 F) 12/28/2022 7:00 AM CDT Respiratory Rate 18 12/28/2022 7:00 AM CDT Oxygen Saturation 95% 12/28/2022 7:00 AM CDT Inhaled Oxygen Concentration - - Weight 90.8 kg (200 lb 3.2 oz) 06/20/2024 3:36 P M BELL CAPTAIN Height 152.4 cm (5') 06/20/2024 3:36 PM BELL CAPTAIN Body Mass Index 39.1 06/20/2024 3:36 PM BELL CAPTAIN Plan of Treatment Health Maintenance Due Date [...] Completed 08/28/2021 Medical Devices Implanted Type Area Well Drill Operator Helper Cable Tool Device Identifier Shelf Expiration Date Model / Serial / Lot [employer]Or tho Yanelis Ii Legion Spc Posterior Stabilize Knee Left 3 Component [id number] - [id number] Implanted:Qty: 1 on 05/08/2022 by Billy Boss MD at [facility] [employer] [id number] 11/11/2029 [id number] / / [id number] [employer]Or tho Yanelis Ii 13mm 26mm Biconvex Knee Component Patellar Uhmwpe [id number] - [id number] Implanted:Qty: 1 on 05/08/2022 by Billy Boss MD at [facility] [employer] [id number] 01/05/2032 [id number] / / [id number] [employer]Or [employer] Legion 9mm Posterior Stabilized High Flexion Knee 1-2 Insert [id number] - [id number] Implanted:Qty: 1 on 05/08/2022 by Billy Boss MD at [facility] [employer] [id number] 08/08/2030 [id number] / / [id number] [employer]Or tho Yanelis Ii Cemented Knee Left 2 Baseplate Tibial [id number] - [id number] Implanted:Qty: 1 on 05/08/2022 by Billy Boss MD at [facility] [employer] [id number] 07/22/2030 [id number] / / [id number] [employer] Simplex P Radiopaque Full Dose Cement Bone Sterile 6191-1-010 - [id number] Implanted:Qty: 1 on 05/08/2022 by Billy Boss MD at [facility] [employer] 11/05/2024 6191-1-010 / / [id number] [employer]Or tho Legion Cement Posterior Stabilize Knee Right 3n Component Femoral [id number] - [id number] Implanted:Qty: 1 on 12/25/2022 by Billy Boss MD at [facility] Right: Knee [employer] [id number] 10/10/2030 [id number] / / [id number] [employer] Simplex P Radiopaque Full Dose Cement Bone Sterile 6191-1-010 - [id number] Implanted:Qty: 1 on 12/25/2022 by Billy Boss MD at [facility] Right: Knee [employer] [id number] 04/07/2025 6191-1-010 / / [id number] [employer]Or tho Yanelis Ii Cement Right Knee 2 Baseplate Tibial Titanium [id number] - [id number] Implanted:Qty: 1 on 12/25/2022 by Billy Boss MD at [facility] Right: Knee [employer] [id number] 02/19/2032 [id number] / / [id number] [employer]Or tho Legion 10mm Posterior Stabilize High Flex Knee 77209 Insert [id number] - [id number] Implanted:Qty: 1 on 12/25/2022 by Billy Boss MD at [facility] Right: Knee [employer] [id number] 07/21/2027 [id number] / / [id number] [employer]Or tho Yanelis Ii 13mm 26mm Biconvex Knee Component Patellar Uhmwpe [id number] - [id number] Implanted:Qty: 1 on 12/25/2022 by Billy Boss MD at [facility] Right: Knee [employer] [id number] 09/21/2032 [id number] / / [id number] Procedures Procedure Name Priority Date/Time Associated Diagnosis Comments ECG 12-LEAD Routine 06/20/2024 3:56 PM BELL CAPTAIN Abnormal EKG EGFR Routine 04/18/2024 9:57 AM BELL CAPTAIN HEMOGLOBIN A1C Routine 04/18/2024 9:57 AM BELL CAPTAIN LIPID PANEL Routine 04/18/2024 9:57 AM BELL CAPTAIN DEXA AXIAL SKELETON BONE DENSITY 1 OR [...] * ECG 12 lead (06/20/2024 3:56 PM BELL CAPTAIN) us Theodore Devlin MD ECG ORDERABLES Final Resul t * eGFR (04/18/2024 9:57 AM BELL CAPTAIN) eGFR 90 >=60 mL/min/1. 73 m2 Comment: [...] last reviewed 2021. Blood 04/18/2024 9:57 AM BELL CAPTAIN 04/18/2024 10:03 AM BELL CAPTAIN us Woody Pandey MD LAB BLOOD ORDERABLES Final Result Performing Organization Address [facility] de Phone Number L[address] [address] * (ABNORMAL) Hemoglobin A1c (04/18/2024 9:57 AM BELL CAPTAIN) Hgb A1C 7.1(H) 4.0 - 5.6 % Estimated Average Glucose 157 mg/dL FIDELINA Comment: The ADA recommends reporting an estimated Average Glucose (eAG) with all Hemoglobin A1c results using the equation derived from a study of 507 normal and diabetic adults. Minority populations were underrepresented and children were not included. (Diabetes Care 31:5378-1986, 2007). The eAG is not equivalent to a fasting glucose. Blood 04/18/2024 9:57 AM BELL CAPTAIN 04/18/2024 10:03 AM BELL CAPTAIN Woody Pandey MD LAB BLOOD ORDERABLES Final Result Performing Organization Address [facility] de Phone Number [address] [address] * Lipid panel (04/18/2024 9:57 AM BELL CAPTAIN) Cholesterol 160 30 - 199 mg/dL Comment: [...] 4 FIDELINA LOZANO Blood 04/18/2024 9:57 AM BELL CAPTAIN 04/18/2024 10:03 AM BELL CAPTAIN us Woody Pandey MD LAB BLOOD ORDERABLES Final Result FIDELINA [address] [facility] Department [place] [address] * Dexa Axial Skeleton Bone Density 1 or 2 Site (03/15/2024 2:43 PM CDT) Anatomical Region Laterality Modality Body N/A Mammography 03/15/2024 6:11 PM CDT Narrative 03/15/2024 6:12 PM CDT EXAM DESCRIPTION: DEXA AXIAL SKELETON BONE DENSITY 1 OR MORE SITES REASON FOR STUDY: 73 y/o year old F with given history of: asymptomatic menopausal state Well Drill Operator Helper Cable Tool/Model: [employer] A (S/N [id number]) CLINICAL INFORMATION: Current height: 60 inches Maximum [...] Matt Leung M.D. MF: DAVID Report ID: [id number] Reading Location: [place] [address] Procedure Note Matt Leung MD - 03/15/2024 EXAM DESCRIPTION: DEXA AXIAL SKELETON BONE DENSITY 1 OR MORE SITES REASON FOR STUDY: 73 y/o year old F with given history of:asymptomatic menopausal state Well Drill Operator Helper Cable Tool/Model: [employer] A (S/N [id number]) CLINICAL INFORMATION: Current height: 60 inches Maximum [...] Matt Leung M.D. MF: DAVID Report ID: [id number] Reading Location: [id number] us Woody Pandey MD IMLes DXA PROCEDURES [...] age 40, based on guidelines of the [place] [employer] (ACR Practice Parameter for the Performance of Screening and Diagnostic Mammography) and [place] [employer]. For women [...] Most Recently Relevant to Health Maintenance Insurance [facility] MEDICARE AETNA [facility]ICARE [facility]IC[facility] Address: [address] [place] [address] Advance Directives For more information, please contact: [phone] * Full Code (Latest Code Status on File) Date Activated Date Inactivated Comments 12/25/2022 1:23 PM 12/28/2022 6:45 PM * Full Code Date Activated Date Inactivated Comments 05/08/2022 3:23 PM 05/09/2022 4:49 PM Care Teams Acct Exec Relationship Specialty Start Date End Date Woody Pandey MD [address] [facility] [address] [place] [address] PCP - General Internal Medicine 06/05/20
[2024-09-01] MEDS: BUPIVACAINE/EPINEPHRINE 0.5% 10 ML VIAL 5 ML INFILTRATE (10:59)
[2024-09-01] MEDS: LIDOCAINE 1% LOCAL INJ 20 ML VIAL 5 ML INFILTRATE (10:59)
[2024-09-01] MEDS: BACITRACIN ZINC OINTMENT 0.9 GRAM PACKET 1 PACKET TOPICAL (11:17)
[2024-09-01 11:19] VITALS: BP 97/52; PULSE 60; RESP 16; O2SAT 100
[2024-09-01 11:29] VITALS: BP 93/66; PULSE 59; RESP 18; O2SAT 97
--- NOTE | 2024-09-01 11:32 | WPDANESPN ---
Anes - Prog Note Post-Op Date/Time: 09/01/24 11:32 Cardiovascular status: normal Respiratory status: normal Airway patency: baseline Mental status: baseline Post-Op hydration status: normal Vital Signs: Last Vital Signs Temp 36.8 C 09/01/24 10:20 Pulse 59 L 09/01/24 11:29 Resp 18 09/01/24 11:29 BP 93/66 L 09/01/24 11:29 Pulse Ox 97 09/01/24 11:29 O2 Del Method Room Air 09/01/24 11:29 Pain Score (VAS): 0/10 09/01/24 10:36 POC Capillary Glucose 105 Patient Feedback: Patient satisfied with anesthetic care.
[2024-09-01 11:39] VITALS: BP 109/57; PULSE 51; RESP 18; O2SAT 97
== END 2024-09-01 11:53 | disposition home or self-care (01) ==
LOC: ASC 09:58
PROVIDERS: PCP Internal Medicine; Visit Provider Plastic Surgery
PROC: (CPT 26608; principal; 2024-09-01 11:30)
DX: S62.317A Displaced fracture of base of fifth metacarpal bone, left hand, initial encounter for closed fracture (principal); W19.XXXA Unspecified fall, initial encounter
CPT/HCPCS: 26608; 99199

== ENCOUNTER 2024-09-13 08:35 | Outpatient (CLI) | payer MEDICARE, SELFPAY ==
--- NOTE | ~2024-09-13 | XR_ITS ---
XR hand LT min 3V Ordering provider: Radha Escobedo PA-C History: . S62.317A - Displaced fracture of base of fifth metacarpal... . Comparison: August 27, 2024 FINDINGS: BONES: Fracture at the base of the fifth metacarpal bone. Postoperative changes are seen in the area. Surrounding cast is seen. JOINT SPACES: Narrowing of the proximal and distal interphalangeal joints. Osteoarthritic changes of the first carpometacarpal joint and scaphotrapezial joint. SOFT TISSUES: Unremarkable. IMPRESSION: Fracture at the base of the fifth metacarpal bone with postoperative changes. Polyarticular osteoarthritic changes. Reviewed, dictated and finalized at location A.
== END 2024-09-13 08:36 | disposition home or self-care (01) ==
PROVIDERS: PCP Internal Medicine; Visit Provider Physician Assistant Surgical
DX: S62.317A Displaced fracture of base of fifth metacarpal bone, left hand, initial encounter for closed fracture (principal); X58.XXXA Exposure to other specified factors, initial encounter; M19.042 Primary osteoarthritis, left hand
CPT/HCPCS: 73130

== ENCOUNTER 2024-09-27 09:30 | Outpatient (CLI) | payer MEDICARE, SELFPAY ==
--- NOTE | ~2024-09-27 | XR_ITS ---
Left Hand Technique: PA, oblique, and lateral views were obtained. Clinical History: Fifth metacarpal fracture COMPARISON: 09/27/2024 Findings: Fractured the base the fifth metacarpal again present. Status post interval removal of orth opedic pins. There has been progressive healing as compared to prior exam from 09/13/2024. Soft tissues are unremarkable. Impression: Continued interval healing of fifth metacarpal fracture, status post interval removal orthopedic pins . Reviewed, dictated and finalized at location M. Impression: Continued interval healing of fifth metacarpal fracture, status post interval r emoval orthopedic pins.
--- NOTE | ~2024-09-27 | XR_ITS ---
XR hand LT min 3V Ordering provider: Radha Escobedo PA-C History: . S62.317A - Displaced fracture of base of fifth metacarpal... . Comparison: September 13, 2024 FINDINGS: BONES: Fracture at the base of the fifth metacarpal bone with postoperative changes at the level of t he fourth and fifth carpal bones. Overlying cast is noted. JOINT SPACES: Osteoarthritic changes at the level of the scaphotrapezial and first carpometacarpal meena ints. SOFT TISSUES: Unremarkable. IMPRESSION: No change from previous examination. Reviewed, dictated and finalized at location A.
--- OUTSIDE RECORDS SUMMARY | 2024-09-27 10:32 | XMS_ITS | Clinical Summary ---
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 Never 12/26/2022 Do you belong to any clubs o r organizations such as confucianism groups, unions, fraternal or athletic groups, or [...] place to sleep or slept in a penitentiary (including now)? No 12/26/2022 Personal Safety Answer Date Recorded Have you ever been in or are you currently in a harmful physical or emotional relationship or is someone making you feel afraid or unsafe? Denies 12/25/2022 Comments No Sex and Gender Information Value Date Recorded Sex Assigned at Not on file Legal Sex Female 2:57 AM POULTRY CULLER Gender Identity Not on file Sexual Orientation Not on file Obstetrics History Para Term AB IAB SAB Ectopic Multiple Livin g Live Births 3 2 2 Date Outcome GA Total Labor Labor/2nd/3rd Weight Sex Type Anes PTL Malina A1 A5 Name Clin Term Term Last Filed Vital Signs Vital Sign Reading Time Taken Comments Blood Pressure 128/70 06/20/2024 3:36 PM POULTRY CULLER Pulse 74 06/20/2024 3:36 PM POULTRY CULLER Temperature 36.4 C (97.6 F) 12/28/2022 7:00 AM CDT Respiratory Rate 18 12/28/2022 7:00 AM CDT Oxygen Saturation 95% 12/28/2022 7:00 AM CDT Inhaled Oxygen Concentration - - Weight 90.8 kg (200 lb 3.2 oz) 06/20/2024 3:36 P M POULTRY CULLER Height 152.4 cm (5') 06/20/2024 3:36 PM POULTRY CULLER Body Mass Index 39.1 06/20/2024 3:36 PM POULTRY CULLER Plan of Treatment Health Maintenance Due Date Last Done Comments Albumin Creatinine Ratio, Urine 1950 Colon Cancer Screening-Colonoscopy 1950 Depression Screening 1950 Hepatitis C Screening 1950 Dilated Eye Exam 1950 Foot Exam 1950 DTaP/Tdap/Td Vaccine (1 - Tdap) 11/25/1962 Hepatitis B Screening 11/25/1969 Zoster Vaccine (1 of 2) 11/25/2001 Well Visit 65+ 11/25/2016 Fall Risk Assessment 12/28/2023 12/27/2022 Covid-19 Vaccine ( - 2023-2 5 season) 2024 03/06/2022, 08/28/2021, 02/06/2021, Additional history exists Hemoglobin A1C 10/16/2024 04/18/2024 Breast Cancer Screening-Mammogram 02/04/2025 02/05/2024, 10/16/2021, 07/06/2015, Additional history exists Influenza Vaccine (Season Ended) 2025 Lipid Panel 04/18/2025 04/18/2024 eGFR 04/18/2025 04/18/2024, 072 08/2022, 12/26/2022, Additional history exists Osteoporosis Screening-Bone Density Scan 03/15/2026 03/15/2024 Pneumococcal vaccine 65+ Completed 08/28/2021 Medical Devices Implanted Type Area [employer] Device Identifier Shelf Expiration Date Model / Serial / Lot [employer]Or tho Yanelis Ii Legion Spc Posterior Stabilize Knee Left 3 Component [id number] - [id number] Implanted:Qty: 1 on 05/08/2022 by Billy Boss MD at [facility] [employer] [id number] 11/11/2029 [id number] / / [id number] [employer]Or tho Yanelis Ii 13mm 26mm Biconvex Knee Component Patellar Uhmwpe [id number] - [id number] Implanted:Qty: 1 on 05/08/2022 by Billy Boss MD at [facility] [employer] [id number] 01/05/2032 [id number] / / [id number] [employer]Or [employer] Legion 9mm Posterior Stabilized High Flexion Knee 1-2 Insert [id number] - [id number] Implanted:Qty: 1 on 05/08/2022 by Billy Boss MD at [facility] [employer] [id number] 08/08/2030 [id number] / / [id number] [employer] Yanelis Ii Cemented Knee Left 2 Baseplate Tibial [id number] - [id number] Implanted:Qty: 1 on 05/08/2022 by Billy Boss MD at [facility] [employer] [id number] 07/22/2030 [id number] / / [id number] [employer] Simplex P Radiopaque Full Dose Cement Bone Sterile 6191-1-010 - [id number] Implanted:Qty: 1 on 05/08/2022 by Billy Boss MD at [facility] [employer] 11/05/2024 6191-1-010 / / [id number] [employer] Legion Cement Posterior Stabilize Knee Right 3n Component Femoral [id number] - [id number] Implanted:Qty: 1 on 12/25/2022 by Billy Boss MD at [facility] Right: Knee [employer] [id number] 10/10/2030 [id number] / / [id number] [employer] Simplex P Radiopaque Full Dose Cement Bone Sterile 6191-1-010 - [id number] Implanted:Qty: 1 on 12/25/2022 by Billy Boss MD at [facility] Right: Knee [employer] [id number] 04/07/2025 6191-1-010 / / [id number] [employer]Or tho Yanelis Ii Cement Right Knee 2 Baseplate Tibial Titanium [id number] - [id number] Implanted:Qty: 1 on 12/25/2022 by Billy Boss MD at [facility] Right: Knee [employer] [id number] 02/19/2032 [id number] / / [id number] [employer]Or [employer] Legion 10mm Posterior Stabilize High Flex Knee 07418 Insert [id number] - [id number] Implanted:Qty: 1 on 12/25/2022 by Billy Boss MD at [facility] Right: Knee [employer] [id number] 07/21/2027 [id number] / / [id number] [employer]Or tho Yanelis Ii 13mm 26mm Biconvex Knee Component Patellar Uhmwpe [id number] - [id number] Implanted:Qty: 1 on 12/25/2022 by Billy Boss MD at [facility] Right: Knee [employer] [id number] 09/21/2032 [id number] / / [id number] Procedures Procedure Name Priority Date/Time Associated Diagnosis Comments EGFR Routine 04/18/2024 9:57 AM POULTRY CULLER HEMOGLOBIN A1C Routine 04/18/2024 9:57 AM POULTRY CULLER LIPID PANEL Routine 04/18/2024 9:57 AM POULTRY CULLER DEXA AXIAL SKELETON BONE DENSITY 1 OR MORE SITES Schedule Routine, Read Routine (OP Routine) 03/15/2024 2:43 PM CDT Asymptomatic menopausal state SCREENING MAMMOGRAM BILATERAL W IFEANYI Schedule Routine, Read Routine (OP Routine) 02/05/2024 2:30 PM CDT Encounter for screening mammogram for malignant neoplasm of breast from Last 3 Months or Most Recently Relevant to Health Maintenance Results * eGFR (04/18/2024 9:57 AM POULTRY CULLER) eGFR 90 >=60 mL/min/1. 73 m2 Comment: [...] last reviewed 2021. Blood 04/18/2024 9:57 AM POULTRY CULLER 04/18/2024 10:03 AM POULTRY CULLER us Woody Pandey MD LAB BLOOD ORDERABLES Final Result [facility] [address] [facility] Department [place] [address] * (ABNORMAL) Hemoglobin A1c (04/18/2024 9:57 AM POULTRY CULLER) Hgb A1C 7.1(H) 4.0 - 5.6 % Estimated Average Glucose 157 mg/dL FIDELINA LOZANO Comment: The ADA recommends reporting an estimated Average Glucose (eAG) with all Hemoglobin A1c results using the equation derived from a study of 507 normal and diabetic adults. Minority populations were underrepresented and children were not included. (Diabetes Care 31:4900-2241, 2008). The eAG is not equivalent to a fasting glucose. Blood 04/18/2024 9:57 AM POULTRY CULLER 04/18/2024 10:03 AM POULTRY CULLER us Woody Pandey MD LAB BLOOD ORDERABLES Final Result [facility] [address] [facility] Department [place] [address] * Lipid panel (04/18/2024 9:57 AM POULTRY CULLER) Cholesterol 160 30 - 199 mg/dL Comment: [...] on 2018. Triglycerides 134 <=149 mg/dL FIDELINA LOZANO Comment: Interpretive Data Ages [...] NCEP Expert Panel. Circulation 2004;110:227 3. Srikanth Quiñones et al. JARRELL Cardiol. 2019October 06;5(5):540-548. doi: 10.1001/jamacardio.2020.0013 [...] ratio 4 FIDELINA Blood 04/18/2024 9:57 AM POULTRY CULLER 04/18/2024 10:03 AM POULTRY CULLER us Woody Pandey MD LAB BLOOD ORDERABLES Final Result [facility] LOZANO [address] [facility] Department [place] [address] * Dexa Axial Skeleton Bone Density 1 or 2 Site (03/15/2024 2:43 PM CDT) Anatomical Region Laterality Modality Body N/A Mammography 03/15/2024 6:11 PM CDT Narrative 03/15/2024 6:12 PM CDT EXAM DESCRIPTION: DEXA AXIAL SKELETON BONE DENSITY 1 OR MORE SITES REASON FOR STUDY: 73 y/o year old F with given history of: asymptomatic menopausal state [employer]/Model: [employer] A (S/N [id number]) CLINICAL INFORMATION: Current height: 60 inches Maximum [...] Matt Leung M.D. MF: DAVID Report ID: [id number] Reading Location: [address] Note Matt Leung MD - 03/15/2024 EXAM DESCRIPTION: DEXA AXIAL SKELETON BONE DENSITY 1 OR MORE SITES REASON FOR STUDY: 73 y/o year old F with given history of:asymptomatic menopausal state [employer] Farmer/Model: [employer] A (S/N [id number]) CLINICAL INFORMATION: Current height: 60 inches Maximum [...] Matt Leung M.D. MF: DAVID Report ID: [id number] Reading Location: [place] [address] Woody Pandey MD IMG DXA PROCEDURES Final [...] age 40, based on guidelines of the [place] [employer] (ACR Practice Parameter for the Performance of Screening and Diagnostic Mammography) and [place] [employer]. For women [...] Relevant to Health Maintenance Insurance AETNA MEDICARE AETNA MEDICARE Advance Directives For more information, please contact: [phone] * Full Code (Latest Code Status on File) Date Activated Date Inactivated Comments 12/25/2022 1:23 PM 12/28/2022 6:45 PM * Full Code Date Activated Date Inactivated Comments 05/08/2022 3:23 PM 05/09/2022 4:49 PM Care Teams Tractor Operator Helper Relationship Specialty Start Date End Date Woody Pandey MD [address] [place] [address] PCP - General Internal Medicine 06/05/20
--- OUTSIDE RECORDS SUMMARY | 2024-09-27 10:32 | XMS_ITS | Data Portability ---
Author Organization [facility] Address [address] [place] [address] Assessment No assessment recorded. Plan of Treatment Reminders Order Date Submit Date Provider Last Modified By Organization Details Last Modified Time Details Appointments None recorded. Lab culture, urine 2021 [employer] [facility], [address] [place], [address], 22:47:56 urinalysis, dipstick 2021 [facility], [address] [place], [address], 13:21:24 HPV E6+E7 mRNA, qualitative PCR, cervix 2021 [facility], [address] [place] [address], [address], 15:18:42 pap, LB 2021 [employer] [facility], [address] [place], [address], 16:28:23 Referral None recorded. Procedures None recorded. Surgeries None recorded. Imaging None recorded. Medication Orders oxybutynin chloride ER 5 mg tablet,exte nded release 24 hr 2021 [id number], [address] [place], [address], 13:21:29 Patient TargetsNo targets recorded. Patient Instructions Encounter Date Encounter Id Patient Instructions Last Modified By Organization Details Last Modified Time 10/10/2021 [id number] A healthy lifestyle: care instructions Not available [...] l cervi bay cytol ogy. Not Available [facility] [address] [place], [address], 10/11/2021 15:18:42 10/11/19 22 10/11/2021 CULTU RE, URINE , ROUTI NE culture, urine, routine SEE NOTE CULTU RE, URINE , ROUTI NE Micro Numbe r: [id number] Test Statu s: Final Speci men [...] Tube, is recom farheen d. Not Available [address], [address], 10/11/2021 22:47:56 10/11/19 22 10/14/2021 THINP REP TIS PAP clinical information: normal Infor matio n not provi ded Not Available [address], [address], 10/14/2021 16:28:22 10/11/19 22 10/14/2021 THINP REP TIS PAP LMP: normal NONE GIVEN Not Available [address], [address], 10/14/2021 16:28:22 10/11/19 22 10/14/2021 THINP REP TIS PAP prev. Pap: normal NONE GIVEN Not Available [address], [address], 10/14/2021 16:28:22 10/11/19 22 10/14/2021 THINP REP TIS PAP prev. BX: normal NONE GIVEN Not Available [address], [address], 10/14/2021 16:28:22 10/11/19 22 10/14/2021 THINP REP TIS PAP source: normal Cervi x Not Available [address], [address], 10/14/2021 16:28:22 10/11/19 22 10/14/2021 THINP REP TIS PAP statement of adequacy: normal Satis facto ry for evalu ation . Endoc ervic al/tr ansfo rmati on zone compo nent absen t. Age and/o r menst rual statu s not provi ded Not Available [place] [address] [place], [address], 10/14/2021 16:28:22 10/11/19 22 10/14/2021 THINP REP TIS PAP interpretati on/result: normal Negat enrique for intra epith elial lesio n or malig eliceo . Not Available [place] [address] [place], [address], 10/14/2021 16:28:22 10/11/19 22 10/14/2021 THINP REP TIS PAP comment: normal This Pap test has been evalu ated with compu lopez techn ology . Not Available [place] [address] [place], [address], 10/14/2021 16:28:22 10/11/19 22 10/14/2021 THINP REP TIS PAP cytotechnolo gist: normal BKA, CT( CP) CT scree will locat ion: [place] [address] [place] [address] Not Available [address], [address], 10/14/2021 16:28:22 10/11/19 22 10/14/2021 THINP REP [...] clini bay infor matio n. Not Available [place] [address] [place], [address], 10/14/2021 16:28:22 10/11/19 22 10/10/2021 urina lysis , dipst ick Leukocytes Small Not Available [place] [address], [place], [address], 10/10/2021 13:03:56 10/11/19 22 10/10/2021 urina lysis , dipst ick Nitrite negati ve Not Available [place] [address], [place], [address], 10/10/2021 13:03:56 10/11/19 22 10/10/2021 urina lysis , dipst ick Protein Trace Not Available [place] [address], [place], [address], 10/10/2021 13:03:56 10/11/19 22 10/10/2021 urina lysis , dipst ick pH 6.0 Not Available [place] [address], [place], [address], 10/10/2021 13:03:56 10/11/19 22 10/10/2021 urina lysis , dipst ick Blood Negati ve Not Available [place] [address], [place], [address], 10/10/2021 13:03:56 10/11/19 22 10/10/2021 urina lysis , dipst ick Specific [employer] 1.000 Not Available [place] [address], [place], [address], 10/10/2021 13:03:56 10/11/19 22 10/10/2021 urina lysis , dipst ick Ketone Trace Not Available [place] [address], [place], [address], 10/10/2021 13:03:56 10/11/19 22 10/10/2021 urina lysis , dipst ick Bilirubin Negati ve Not Available [address], [address], 10/10/2021 13:03:56 10/11/19 22 10/10/2021 urina lysis , dipst ick Glucose Negati ve Not Available [address], [place], [address], 10/10/2021 13:03:56 10/11/19 22 10/10/2021 urina lysis , dipst ick Appearance Clear Not Available [address], [place], [address], 10/10/2021 13:03:56 10/11/19 22 10/10/2021 urina lysis , dipst ick Color Yellow Not Available [address], [place], [address], 10/10/2021 13:03:56 Result Notes None recorded. Problems Name Problem SNOMED Code Status Onset Date Resolution Date Notes Provider Name and Address Organization Details Recorded Time Blood in urine 85979867 Active 2014 Gross hematuria ; Location: None Progress: Stable Added By: Meg Winkler Add to Current Problems: YES ProblemSt atus: Current Not Available [facility] 2 21:53:02 Postmeno pausal bleeding 16070135 Completed 201408/18/2014 Postmenop ausal vaginal bleeding; Progress: Stable Added By: Adamaris Mckeon Add to Current Problems: NO ProblemSt atus: Resolve Not Available [facility] 2 21:53:02 Problem Notes None recorded. Procedures Surgical History Date Name Laterality Status Provider Name and Address Organization Details Recorded Time 4 Date of Last Pap Smear completed [facility] 10/08/2021 13:30:57 4 Most Recent Mammogram completed Frances Stoner [facility] 10/08/2021 13:31:11 ligation of bilateral fallopian tubes completed Frances Stoner [facility] 10/08/2021 13:32:42 procedure on lung completed Frances Stoner [facility] [employer] [facility] 10/08/2021 13:33:16 Imaging Results None recorded. Procedure [...] Updated DateTime 10/10/2021 154.94 cm 37.2 kg/m2 28995.34 g Darline Barrett [facility] 10/10/2021 12:54:39 Social History Question Answer Notes LastModified by Organizat ion Details LastModified Time Tobacco Smoking Status Former Smoker [facility] 10/08/2021 13:34:07 What Is Your Level Of [...] SNOMED-CT Code Diagnosis ICD10 Code Diagnosis Note [id number] Luzma Escalante MD [facility] [address] [place] [address] 10/10/2021 12:37:41 10/10/2021 14:31:03 Gynecologic examination 64231967 Z01.419 lose weight recommende d Screening for malignant neoplasm of cervix 359211331 Z12.4 Screening for malignant neoplasm of breast 208804854 Z12.39 mammogram scheduled Screening colonoscopy 44 8121775 Z12[address] Tello Menopause present 741765 006 N95.1 bone density scheduled Urinary incontinence 165 826992 R32 mixed incontinen ce. 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 10/10/2021 13:21:49 OBGyn Episode No OBEpisode recorded.
--- OUTSIDE RECORDS SUMMARY | 2024-09-27 10:32 | XMS_ITS | Referral Summary ---
Author Organization [facility] Address [address] [place] [address] Care Team Providers Care Photographic Aide Name Role Phone Woody Pandey MD Primary Care Provider [phone]- [phone] Allergies No known active allergies Medications omeprazole [...] often do you attend chur ch or bahai services? Never 12/26/2022 Do you belong to any clubs o r organizations such as alevism groups, unions, fraternal or athletic groups, or [...] place to sleep or slept in a alf (including now)? No 12/26/2022 Personal Safety Answer Date Recorded Have you ever been in or are you currently in a harmful physical or emotional relationship or is someone making you feel afraid or unsafe? Denies 12/25/2022 Comments No Sex and Gender Information Value Date Recorded Sex Assigned at Not on file Legal Sex Female 2:57 AM TABLE RUNNER Gender Identity Not on file Sexual Orientation Not on file Last Filed Vital Signs Vital Sign Reading Time Taken Comments Blood Pressure 128/70 06/20/2024 3:36 PM TABLE RUNNER Pulse 74 06/20/2024 3:36 PM TABLE RUNNER Temperature 36.4 C (97.6 F) 12/28/2022 7:00 AM CDT Respiratory Rate 18 12/28/2022 7:00 AM CDT Oxygen Saturation 95% 12/28/2022 7:00 AM CDT Inhaled Oxygen Concentration - - Weight 90.8 kg (200 lb 3.2 oz) 06/20/2024 3:36 P M TABLE RUNNER Height 152.4 cm (5') 06/20/2024 3:36 PM TABLE RUNNER Body Mass Index 39.1 06/20/2024 3:36 PM TABLE RUNNER Plan of Treatment Not on file Medical Devices Implanted Type Area Repairer And Checker Device Identifier Shelf Expiration Date Model / Serial / Lot [employer]/Or tho Yanelis Ii Legion Spc Posterior Stabilize Knee Left 3 Component [id number] - [id number] Implanted:Qty: 1 on 05/08/2022 by Billy Boss MD at [facility] [employer] rtho [id number] 11/11/2029 [id number] / / [id number] [employer]Rich[employer]Or tho Yanelis Ii 13mm 26mm Biconvex Knee Component Patellar Uhmwpe [id number] - [id number] Implanted:Qty: 1 on 05/08/2022 by Billy Boss MD at [facility] [employer] rtho [id number] 01/05/2032 [id number] / / [id number] [employer]Or tho Legion 9mm Posterior Stabilized High Flexion Knee 1-2 Insert [id number] - [id number] Implanted:Qty: 1 on 05/08/2022 by Billy Boss MD at [facility] [employer] rtho [id number] 08/08/2030 [id number] / / [id number] [employer]Or tho Yanelis Ii Cemented Knee Left 2 Baseplate Tibial [id number] - [id number] Implanted:Qty: 1 on 05/08/2022 by Billy Boss MD at [facility] [employer] rtho [id number] 07/22/2030 [id number] / / [id number] Drain [employer]opaedics Simplex P Radiopaque Full Dose Cement Bone Sterile 6191-1-010 - [id number] Implanted:Qty: 1 on 05/08/2022 by Billy Boss MD at [facility] [employer] 11/05/2024 6191-1-010 / / [id number] [employer]Rich[employer]Or tho Legion Cement Posterior Stabilize Knee Right 3n Component Femoral [id number] - [id number] Implanted:Qty: 1 on 12/25/2022 by Billy Boss MD at [facility] Right: Knee [employer] rtho [id number] 10/10/2030 [id number] / / [id number] [employer] Simplex P Radiopaque Full Dose Cement Bone Sterile 6191-1-010 - [id number] Implanted:Qty: 1 on 12/25/2022 by Billy Boss MD at [facility] Right: Knee [employer] [id number] 04/07/2025 6191-1-010 / / [id number] [employer]Rich[employer]Or tho Yanelis Ii Cement Right Knee 2 Baseplate Tibial Titanium [id number] - [id number] Implanted:Qty: 1 on 12/25/2022 by Billy Boss MD at [facility] Right: Knee [employer]/O rtho [id number] 02/19/2032 [id number] / / [id number] [employer]Rich[employer]/Or tho Legion 10mm Posterior Stabilize High Flex Knee 68625 Insert [id number] - [id number] Implanted:Qty: 1 on 12/25/2022 by Billy Boss MD at [facility] Right: Knee [employer] rtho [id number] 07/21/2027 [id number] / / [id number] [employer]Rich[employer]/Or tho Yanelis Ii 13mm 26mm Biconvex Knee Component Patellar Uhmwpe [id number] - [id number] Implanted:Qty: 1 on 12/25/2022 by Billy Boss MD at [facility] Right: Knee [employer] rtho [id number] 09/21/2032 [id number] / / [id number] Procedures Procedure Name Priority Date/Time Associated Diagnosis Comments EGFR Routine 04/18/2024 9:57 AM TABLE RUNNER HEMOGLOBIN A1C Routine 04/18/2024 9:57 AM TABLE RUNNER LIPID PANEL Routine 04/18/2024 9:57 AM TABLE RUNNER DEXA AXIAL SKELETON BONE DENSITY 1 OR MORE SITES Schedule Routine, Read Routine (OP Routine) 03/15/2024 2:43 PM CDT Asymptomatic menopausal state SCREENING MAMMOGRAM BILATERAL W RIC Schedule Routine, Read Routine (OP Routine) 02/05/2024 2:30 PM CDT Encounter for screening mammogram for malignant neoplasm of breast from Last 3 Months or Most Recently Relevant to Health Maintenance Results * eGFR (04/18/2024 9:57 AM TABLE RUNNER) eGFR 90 >=60 mL/min/1. 73 m2 Comment: [...] last reviewed 2021. Blood 04/18/2024 9:57 AM TABLE RUNNER 04/18/2024 10:03 AM TABLE RUNNER Woody Pandey MD LAB BLOOD ORDERABLES Final Result [facility] [address] [facility] Department [place] [address] * (ABNORMAL) Hemoglobin A1c (04/18/2024 9:57 AM TABLE RUNNER) Hgb A1C 7.1(H) 4.0 - 5.6 % Estimated Average Glucose 157 mg/dL FIDELINA LOZANO Comment: The ADA recommends reporting an estimated Average Glucose (eAG) with all Hemoglobin A1c results using the equation derived from a study of 507 normal and diabetic adults. Minority populations were underrepresented and children were not included. (Diabetes Care 31:0058-2477, 2008). The eAG is not equivalent to a fasting glucose. Blood 04/18/2024 9:57 AM TABLE RUNNER 04/18/2024 10:03 AM TABLE RUNNER us Woody Pandey MD LAB BLOOD ORDERABLES Final Result [facility] [address] [facility] Department [place] [address] * Lipid panel (04/18/2024 9:57 AM TABLE RUNNER) Cholesterol 160 30 - 199 mg/dL Comment: [...] on 2018. HDL 44 >=40 mg/dL FIDELINA LOZANO Comment: Interpretive Data Ages [...] 2018. LDL, calculated 92 <=129 mg/dL FIDELINA LOZANO Comment: Interpretive Data Ages [...] 3. Srikanth Quiñones et al. JARRELL Cardiol. 2020 October 06;5(5):540-548. 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 MF: DAVID Report ID: [id number] Reading Location: [place] [address] us Woody Pandey MD IMG DXA PROCEDURES [...] Relevant to Health Maintenance Insurance [employer] MEDICARE [facility] MEDICARE Advance Directives For more information, please contact: [phone] * Full Code (Latest Code Status on File) Date Activated Date Inactivated Comments 12/25/2022 1:23 PM 12/28/2022 6:45 PM * Full Code Date Activated Date Inactivated Comments 05/08/2022 3:23 PM 05/09/2022 4:49 PM Care Teams Photographic Aide Relationship Specialty Start Date End Date Woody Pandey MD [address] [address] PCP - General Internal Medicine 06/05/20
== END 2024-09-27 09:31 | disposition home or self-care (01) ==
PROVIDERS: PCP Internal Medicine; Visit Provider Physician Assistant Surgical
DX: S62.317D Displaced fracture of base of fifth metacarpal bone, left hand, subsequent encounter for fracture with routine healing (principal); X58.XXXD Exposure to other specified factors, subsequent encounter
CPT/HCPCS: 73130

== ENCOUNTER 2024-10-25 09:33 | Outpatient (CLI) | payer MEDICARE, SELFPAY ==
--- NOTE | ~2024-10-25 | XR_ITS ---
XR hand LT min 3V Ordering provider: Radha Escobedo PA-C History: . s/p pin removal, F/U 5TH DIGIT FRACTURE . Comparison: September 27, 2024 FINDINGS: BONES: Healing fracture at the base of the fifth metacarpal bone. No change in alignment. JOINT SPACES: narrowing of the proximal and distal interphalangeal joints. Osteoarthritic changes of the first carpometacarpal joint. SOFT TISSUES: Unremarkable. IMPRESSION: Healing fracture at the base of the fifth metacarpal bone with no change in alignment. Polyarticular osteoarthritic changes. Reviewed, dictated and finalized at location A. IMPRESSION: Healing fracture at the base of the fifth metacarpal bone with no change in ali gnment. Polyarticular osteoarthritic changes.
--- OUTSIDE RECORDS SUMMARY | 2024-10-25 09:48 | XMS_ITS | Data Portability ---
Author Organization [facility] , [facility] Address [address] [place] [address] Assessment No assessment recorded. Plan of Treatment Reminders Order Date Submit Date Provider Last Modified By Organization Details Last Modified Time Details Appointments None recorded. Lab culture, urine 2021 [facility], [address] [place], [address], 22:47:56 urinalysis, dipstick 2021 [facility], [address] [place], [address], 13:21:24 HPV E6+E7 mRNA, qualitative PCR, cervix 2021 [facility], [address] [place] [address], [address], 15:18:42 pap, LB 2021 [facility], [address] [place], [address], 16:28:23 Referral None recorded. Procedures None recorded. Surgeries None recorded. Imaging None recorded. Medication Orders oxybutynin chloride ER 5 mg tablet,exte nded release 24 hr 2021 [id number], [address] [place], [address], 13:21:29 Patient TargetsNo targets recorded. Patient Instructions Encounter Date Encounter Id Patient Instructions Last Modified By Organization Details Last Modified Time 10/10/2021 [id number] A healthy lifestyle: care instructions Not available [...] l cervi bay cytol ogy. Not Available [facility] [address] [place], [address], 10/11/2021 15:18:42 10/11/19 22 10/11/2021 CULTU RE, URINE , ROUTI NE culture, urine, routine SEE NOTE CULTU RE, URINE , ROUTI NE Micro Numbe r: [id number] Test Statu s: Final Speci men [...] Tube, is recom farheen d. Not Available [address], [address], 10/11/2021 22:47:56 10/11/19 22 10/14/2021 THINP REP TIS PAP clinical information: normal Infor matio n not provi ded Not Available [address], [address], 10/14/2021 16:28:22 10/11/19 22 10/14/2021 THINP REP TIS PAP LMP: normal NONE GIVEN Not Available [address], [address], 10/14/2021 16:28:22 10/11/19 22 10/14/2021 THINP REP TIS PAP prev. Pap: normal NONE GIVEN Not Available [address], [address], 10/14/2021 16:28:22 10/11/19 22 10/14/2021 THINP REP TIS PAP prev. BX: normal NONE GIVEN Not Available [address], [address], 10/14/2021 16:28:22 10/11/19 22 10/14/2021 THINP REP TIS PAP source: normal Cervi x Not Available [address], [address], 10/14/2021 16:28:22 10/11/19 22 10/14/2021 THINP REP TIS PAP statement of adequacy: normal Satis facto ry for evalu ation . Endoc ervic al/tr ansfo rmati on zone compo nent absen t. Age and/o r menst rual statu s not provi ded Not Available [place] [address] [place], [address], 10/14/2021 16:28:22 10/11/19 22 10/14/2021 THINP REP TIS PAP interpretati on/result: normal Negat enrique for intra epith elial lesio n or malig eliceo . Not Available [place] [address] [place], [address], 10/14/2021 16:28:22 10/11/19 22 10/14/2021 THINP REP TIS PAP comment: normal This Pap test has been evalu ated with compu lopez techn ology . Not Available [place] [address] [place], [address], 10/14/2021 16:28:22 10/11/19 22 10/14/2021 THINP REP TIS PAP cytotechnolo gist: normal BKA, CT( CP) CT scree will locat ion: [place] [address] [place] [address] Not Available [address], [address], 10/14/2021 16:28:22 10/11/19 22 10/14/2021 THINP REP [...] clini bay infor matio n. Not Available [place] [address] [place], [address], 10/14/2021 16:28:22 10/11/19 22 10/10/2021 urina lysis , dipst ick Leukocytes Small Not Available [place] [address], [place], [address], 10/10/2021 13:03:56 10/11/19 22 10/10/2021 urina lysis , dipst ick Nitrite negati ve Not Available [place] [address], [place], [address], 10/10/2021 13:03:56 10/11/19 22 10/10/2021 urina lysis , dipst ick Protein Trace Not Available [place] [address], [place], [address], 10/10/2021 13:03:56 10/11/19 22 10/10/2021 urina lysis , dipst ick pH 6.0 Not Available [place] [address], [place], [address], 10/10/2021 13:03:56 10/11/19 22 10/10/2021 urina lysis , dipst ick Blood Negati ve Not Available [place] [address], [place], [address], 10/10/2021 13:03:56 10/11/19 22 10/10/2021 urina lysis , dipst ick Specific [place] 1.000 Not Available [place] [address], [place], [address], 10/10/2021 13:03:56 10/11/19 22 10/10/2021 urina lysis , dipst ick Ketone Trace Not Available [place] [address], [place], [address], 10/10/2021 13:03:56 10/11/19 22 10/10/2021 urina lysis , dipst ick Bilirubin Negati ve Not Available [address], [address], 10/10/2021 13:03:56 10/11/19 22 10/10/2021 urina lysis , dipst ick Glucose Negati ve Not Available [address], [place], [address], 10/10/2021 13:03:56 10/11/19 22 10/10/2021 urina lysis , dipst ick Appearance Clear Not Available [address], [place], [address], 10/10/2021 13:03:56 10/11/19 22 10/10/2021 urina lysis , dipst ick Color Yellow Not Available [address], [place], [address], 10/10/2021 13:03:56 Result Notes None recorded. Problems Name Problem SNOMED Code Status Onset Date Resolution Date Notes Provider Name and Address Organization Details Recorded Time Blood in urine 64170060 Active 2014 Gross hematuria ; Location: None Progress: Stable Added By: Meg Winkler Add to Current Problems: YES ProblemSt atus: Current Not Available [facility] 2 21:53:02 Postmeno pausal bleeding 92820590 Completed 201408/18/2014 Postmenop ausal vaginal bleeding; Progress: Stable Added By: Adamaris Mckeon Add to Current Problems: NO ProblemSt atus: Resolve Not Available [facility] 2 21:53:02 Problem Notes None recorded. Procedures Surgical History Date Name Laterality Status Provider Name and Address Organization Details Recorded Time 4 Date of Last Pap Smear completed [facility] 10/08/2021 13:30:57 4 Most Recent Mammogram completed Frances Stoner [facility] 10/08/2021 13:31:11 ligation of bilateral fallopian tubes completed Frances Stoner [facility] [facility] 10/08/2021 13:32:42 procedure on lung completed Frances Stoner [facility] [employer] [facility] 10/08/2021 13:33:16 Imaging Results None recorded. [...] Updated DateTime 10/10/2021 154.94 cm 37.2 kg/m2 62467.34 g Darline Barrett [facility] 10/10/2021 12:54:39 Social History Question Answer Notes LastModified by Organizat ion Details LastModified Time Tobacco Smoking Status [facility] 10/08/2021 13:34:07 When Did You Quit Smoking? 17+yearssinc elastcigaret te 1986 Information not available 10/08/2021 How Many Children Do You Have? 2 Information not available 10/08/2021 What Is Your Relationship Status? ildefonso Information not available 10/10/2021 Are You Sexually Active? Yes Information not available 10/08/2021 Sex: Unknown Functional Status Question Answer Note LastModified by Organizat ion Details LastModified Time Do you use any illicit or recreational drugs? No Information not available 10/08/2021 Do you or have you ever used any other forms of tobacco or nicotine? No Information not available 10/08/2021 What is your level of alcohol consumption? None Information not available 10/08/2021 Mental Status None recorded. Family History Relationship Description Onset Age of this Age Resolved Age Notes LastModified by Organization Details LastModified Time Father Family history of diabetes mellitus type 2 Not available 2021 13:32:28 Medical History Condition Response High Blood Pressure N Kidney Stones N Blood Diseases N Cytomegalovirus N Hyperthyroidism N MRSA N Blood Transfusion N Depression N COPD N Incontinence N Anxiety Disorder N Autoimmune disease N Muscle, Joint, or Bone Problems N Obesity N Vision or Eye Problems [...] Problems N Hospitalizations N Learning Disorder N Skin Problems N Eating Disorder N Diabetes Mellitus (non-insulin dependent ) N MRSA exposure N Ovarian Problems N Constipation N Brain Injury N Frequent Urinary Tract infections N Osteopenia N GERD (reflux) N Visual Hallucinations N Diabetes (insulin dependent) N Tuberculosis N AIDS/HIV N Asthma N Heart Attack N Endometrial Cancer N GERD/Reflux N Hepatitis N Pulmonary Embolism N Chronic Ear Infections N RPR N Autism Spectrum Disorder (ASD) N Chicken Pox N Other Cancer N Thyroid Disease N Colon Cancer N Herpes (HSV) N Breast Cancer N Lung Cancer N Hypothyroidism N Developmental or Behavioral Disorders N Difficulty Swallowing N Panic Attacks N Neurological Disorder N Deep Vein Thrombosis N Meniere's disease N Tuberculosis/Positive PPD N Shingles N Cervical Cancer N Chlamydia N HPV/Genital Warts N Endometriosis N Bladder or Kidney Problems N IBS (Irritable Bowel Syndrome) N High Cholesterol N Liver Disease N Psychiatric/Mental Health Condition N Schizophrenia N Ulcer N Allergies/Hayfever N HIV N Sickle Cell Disease/Trait N ADD/ADHD N Anemia N Multiple Sclerosis N Gonorrhea N Mental Illness N Headaches/migraines N Ovarian Cancer N Bedwetting N Seizures/Epilepsy [...] SNOMED-CT Code Diagnosis ICD10 Code Diagnosis Note [id number] Luzma Escalante MD [facility] [address] [place] [address] 10/10/2021 12:37:41 10/10/2021 14:31:03 Gynecologic examination 63615578 Z01.419 lose weight recommende d Screening for malignant neoplasm of cervix [id number] Z12.4 Screening for malignant neoplasm of breast 024877771 Z12.39 mammogram scheduled Screening colonoscopy [id number] Tello Menopause present [id number] 006 N95.1 bone density scheduled Urinary incontinence 165 779589 R32 mixed incontinen ce. Not interested in surgery. Try oxybutinin for quality of life improvment Health Concerns Section Related Observation LastModified by Organization Detai ls LastModified Time None Recorded Concern Status LastModified by Organization Details LastModified Time None Recorded Advance Directives Directive None Recorded Payers Insurance Date Sequence Insurance Name Policy Number Policy Boland Covered Member ID Boland Member ID Guarantor Name 01/14/2022 2 [facility] BENEFITS PLAN - OPEN ACCESS PLUS Mel Callahan [id number] Beatriz Callahan 10/10/2021 1 [place] Beatriz Callahan [id number] Beatriz Callahan Notes Date Note Type Note Provider Name and Address Organization Details Recorded Time 10/10/2021 text/html Annual Beverage Server Post-MenopausalRep orted bypatient.Menopaus al Symptoms:no menopausal symptoms [...] depression; no anxiety Luzma Escalante MD [address] [facility], [place], [address], [facility] 10/10/2021 13:21:49 OBGyn Episode No OBEpisode recorded.
--- OUTSIDE RECORDS SUMMARY | 2024-10-25 09:48 | XMS_ITS | Referral Summary ---
Author Organization [facility] Address [address] [place] [address] Care Team Providers Care Erp Engineer Name Role Phone Woody Pandey MD Primary Care Provider [phone]- [phone] Allergies No known active allergies Medications omeprazole [...] often do you attend chur ch or alevism services? Never 12/26/2022 Do you belong to any clubs o r organizations such as gnosticist groups, unions, fraternal or athletic groups, or [...] place to sleep or slept in a detention (including now)? No 12/26/2022 Personal Safety Answer Date Recorded Have you ever been in or are you currently in a harmful physical or emotional relationship or is someone making you feel afraid or unsafe? Denies 12/25/2022 Comments No Sex and Gender Information Value Date Recorded Sex Assigned at Not on file Legal Sex Female 2:57 AM EXECUTIVE ASSISTANT TO PRESIDENT Gender Identity Not on file Sexual Orientation Not on file Last Filed Vital Signs Vital Sign Reading Time Taken Comments Blood Pressure 128/70 06/20/2024 3:36 PM EXECUTIVE ASSISTANT TO PRESIDENT Pulse 74 06/20/2024 3:36 PM EXECUTIVE ASSISTANT TO PRESIDENT Temperature 36.4 C (97.6 F) 12/28/2022 7:00 AM CDT Respiratory Rate 18 12/28/2022 7:00 AM CDT Oxygen Saturation 95% 12/28/2022 7:00 AM CDT Inhaled Oxygen Concentration - - Weight 90.8 kg (200 lb 3.2 oz) 06/20/2024 3:36 P M EXECUTIVE ASSISTANT TO PRESIDENT Height 152.4 cm (5') 06/20/2024 3:36 PM EXECUTIVE ASSISTANT TO PRESIDENT Body Mass Index 39.1 06/20/2024 3:36 PM EXECUTIVE ASSISTANT TO PRESIDENT Plan of Treatment Not on file Medical Devices Implanted Type Area Agile Coach Device Identifier Shelf Expiration Date Model / Serial / Lot [employer]Rich[employer]/Or tho Yanelis Ii Legion Spc Posterior Stabilize Knee Left 3 Component [id number] - [id number] Implanted:Qty: 1 on 05/08/2022 by Billy Boss MD at [facility] [employer] rtho [id number] 11/11/2029 [id number] / / [id number] [employer]Rich[employer]/Or tho Yanelis Ii 13mm 26mm Biconvex Knee Component Patellar Uhmwpe [id number] - [id number] Implanted:Qty: 1 on 05/08/2022 by Billy Boss MD at [facility] [employer]Rich[employer] rtho [id number] 01/05/2032 [id number] / / [id number] [employer]Rich[employer]/Or tho Legion 9mm Posterior Stabilized High Flexion Knee 1-2 Insert [id number] - [id number] Implanted:Qty: 1 on 05/08/2022 by Billy Boss MD at [facility] [employer]/O rtho [id number] 08/08/2030 [id number] / / [id number] [employer]Rich[employer]/Or tho Yanelis Ii Cemented Knee Left 2 Baseplate Tibial [id number] - [id number] Implanted:Qty: 1 on 05/08/2022 by Billy Boss MD at [facility] [employer]/O rtho [id number] 07/22/2030 [id number] / / [id number] [employer] Simplex P Radiopaque Full Dose Cement Bone Sterile 6191-1-010 - [id number] Implanted:Qty: 1 on 05/08/2022 by Billy Boss MD at [facility] [employer] 11/05/2024 6191-1-010 / / [id number] [employer]Rich[employer]/Or tho Legion Cement Posterior Stabilize Knee Right 3n Component Femoral [id number] - [id number] Implanted:Qty: 1 on 12/25/2022 by Billy Boss MD at [facility] Right: Knee [employer]/O rtho [id number] 10/10/2030 [id number] / / [id number] [employer] Simplex P Radiopaque Full Dose Cement Bone Sterile 6191-1-010 - [id number] Implanted:Qty: 1 on 12/25/2022 by Billy Boss MD at [facility] Right: Knee [employer] [id number] 04/07/2025 6191-1-010 / / [id number] [employer]Rich[employer]/Or tho Yanelis Ii Cement Right Knee 2 Baseplate Tibial Titanium [id number] - [id number] Implanted:Qty: 1 on 12/25/2022 by Billy Boss MD at [facility] Right: Knee [employer] rtho [id number] 02/19/2032 [id number] / / [id number] [employer]Rich[employer]/Or tho Legion 10mm Posterior Stabilize High Flex Knee 42734 Insert [id number] - [id number] Implanted:Qty: 1 on 12/25/2022 by Billy Boss MD at [facility] Right: Knee [employer] rtho [id number] 07/21/2027 [id number] / / [id number] [employer]Rich[employer]/Or tho Yanelis Ii 13mm 26mm Biconvex Knee Component Patellar Uhmwpe [id number] - [id number] Implanted:Qty: 1 on 12/25/2022 by Billy Boss MD at [facility] Right: Knee [employer]o [id number] 09/21/2032 [id number] / / [id number] Procedures Procedure Name Priority Date/Time Associated Diagnosis Comments EGFR Routine 04/18/2024 9:57 AM EXECUTIVE ASSISTANT TO PRESIDENT HEMOGLOBIN A1C Routine 04/18/2024 9:57 AM EXECUTIVE ASSISTANT TO PRESIDENT LIPID PANEL Routine 04/18/2024 9:57 AM EXECUTIVE ASSISTANT TO PRESIDENT DEXA AXIAL SKELETON BONE DENSITY 1 OR MORE SITES Schedule Routine, Read Routine (OP Routine) 03/15/2024 2:43 PM CDT Asymptomatic menopausal state SCREENING MAMMOGRAM BILATERAL W RIC Schedule Routine, Read Routine (OP Routine) 02/05/2024 2:30 PM CDT Encounter for screening mammogram for malignant neoplasm of breast from Last 3 Months or Most Recently Relevant to Health Maintenance Results * eGFR (04/18/2024 9:57 AM EXECUTIVE ASSISTANT TO PRESIDENT) eGFR 90 >=60 mL/min/1. 73 m2 Comment: [...] last reviewed 2021. Blood 04/18/2024 9:57 AM EXECUTIVE ASSISTANT TO PRESIDENT 04/18/2024 10:03 AM EXECUTIVE ASSISTANT TO PRESIDENT Woody Pandey MD LAB BLOOD ORDERABLES Final Result [facility] [address] [facility] Department [place] [address] * (ABNORMAL) Hemoglobin A1c (04/18/2024 9:57 AM EXECUTIVE ASSISTANT TO PRESIDENT) Hgb A1C 7.1(H) 4.0 - 5.6 % Estimated Average Glucose 157 mg/dL [facility] LOZANO Comment: The ADA recommends reporting an estimated Average Glucose (eAG) with all Hemoglobin A1c results using the equation derived from a study of 507 normal and diabetic adults. Minority populations were underrepresented and children were not included. (Diabetes Care 31:3959-3226, 2008). The eAG is not equivalent to a fasting glucose. Blood 04/18/2024 9:57 AM EXECUTIVE ASSISTANT TO PRESIDENT 04/18/2024 10:03 AM EXECUTIVE ASSISTANT TO PRESIDENT us Woody Pandey MD LAB BLOOD ORDERABLES Final Result [facility] [address] [facility] Department [place] [address] * Lipid panel (04/18/2024 9:57 AM EXECUTIVE ASSISTANT TO PRESIDENT) Cholesterol 160 30 - 199 mg/dL Comment: [...] 4 [facility]ELINA LOZANO Blood 04/18/2024 9:57 AM EXECUTIVE ASSISTANT TO PRESIDENT 04/18/2024 10:03 AM EXECUTIVE ASSISTANT TO PRESIDENT us Woody Pandey MD LAB BLOOD ORDERABLES Final Result [facility] [address] [facility] Department [place] [address] * Dexa Axial Skeleton Bone Density 1 or 2 Site (03/15/2024 2:43 PM CDT) Anatomical Region Laterality Modality Body N/A Mammography 03/15/2024 6:11 PM CDT Narrative 03/15/2024 6:12 PM CDT EXAM DESCRIPTION: DEXA AXIAL SKELETON BONE DENSITY 1 OR MORE SITES REASON FOR STUDY: 73 y/o year old F with given history of: asymptomatic menopausal state Agile Coach/Model: GreenWatt A (S/N [id number]) CLINICAL INFORMATION: Current height: 60 inches Maximum [...] Matt Leung M.D. MF: DAVID Report ID: [id number] Reading Location: [address] Note Matt Leung MD - 03/15/2024 EXAM DESCRIPTION: DEXA AXIAL SKELETON BONE DENSITY 1 OR MORE SITES REASON FOR STUDY: 73 y/o year old F with given history of:asymptomatic menopausal state Agile Coach/Model: GreenWatt A (S/N [id number]) CLINICAL INFORMATION: Current height: 60 inches Maximum [...] Matt Leung M.D. MF: DAVID Report ID: [id number] Reading Location: [place] [address] us Woody Pandey MD IMG DXA PROCEDURES [...] age 40, based on guidelines of the [place] [employer] (ACR Practice Parameter for the Performance of Screening and Diagnostic Mammography) and [place] [employer]. For women [...] Relevant to Health Maintenance Insurance [employer] MEDICARE [facility] MEDICARE Advance Directives For more information, please contact: [phone] * Full Code (Latest Code Status on File) Date Activated Date Inactivated Comments 12/25/2022 1:23 PM 12/28/2022 6:45 PM * Full Code Date Activated Date Inactivated Comments 05/08/2022 3:23 PM 05/09/2022 4:49 PM Care Teams Erp Engineer Relationship Specialty Start Date End Date Woody Pandey MD [address] [address] PCP - General Internal Medicine 06/05/20
--- OUTSIDE RECORDS SUMMARY | 2024-10-25 09:48 | XMS_ITS | Clinical Summary ---
Author Organization [facility] Address [address] [place] [address] Care Team Providers Care Hog Cutter Name Role Phone Woody Pandey MD Primary Care Provider +1- [phone] Allergies No known active allergies Medications omeprazole [...] often do you attend chur ch or denominational services? Never 12/26/2022 Do you belong to any clubs o r organizations such as adventism groups, unions, fraternal or athletic groups, or [...] place to sleep or slept in a halfway (including now)? No 12/26/2022 Personal Safety Answer Date Recorded Have you ever been in or are you currently in a harmful physical or emotional relationship or is someone making you feel afraid or unsafe? Denies 12/25/2022 Comments No Sex and Gender Information Value Date Recorded Sex Assigned at Not on file Legal Sex Female 2:57 AM TECHNICAL SOLUTION ARCHITECT Gender Identity Not on file Sexual Orientation Not on file Obstetrics History Para Term AB IAB SAB Ectopic Multiple Livin g Live Births 3 2 2 Date Outcome GA Total Labor Labor/2nd/3rd Weight Sex Type Anes PTL Malina A1 A5 Name Clin Term Term Last Filed Vital Signs Vital Sign Reading Time Taken Comments Blood Pressure 128/70 06/20/2024 3:36 PM TECHNICAL SOLUTION ARCHITECT Pulse 74 06/20/2024 3:36 PM TECHNICAL SOLUTION ARCHITECT Temperature 36.4 C (97.6 F) 12/28/2022 7:00 AM CDT Respiratory Rate 18 12/28/2022 7:00 AM CDT Oxygen Saturation 95% 12/28/2022 7:00 AM CDT Inhaled Oxygen Concentration - - Weight 90.8 kg (200 lb 3.2 oz) 06/20/2024 3:36 P M TECHNICAL SOLUTION ARCHITECT Height 152.4 cm (5') 06/20/2024 3:36 PM TECHNICAL SOLUTION ARCHITECT Body Mass Index 39.1 06/20/2024 3:36 PM TECHNICAL SOLUTION ARCHITECT Plan of Treatment Health Maintenance Due Date [...] Completed 08/28/2021 Medical Devices Implanted Type Area Soccer Player Device Identifier Shelf Expiration Date Model / Serial / Lot [employer]Rich[employer]/Or tho Yanelis Ii Legion Spc Posterior Stabilize Knee Left 3 Component [id number] - [id number] Implanted:Qty: 1 on 05/08/2022 by Billy Boss MD at [facility] [employer]o [id number] 11/11/2029 [id number] / / [id number] [employer]/Or tho Yanelis Ii 13mm 26mm Biconvex Knee Component Patellar Uhmwpe [id number] - [id number] Implanted:Qty: 1 on 05/08/2022 by Billy Boss MD at [facility] [employer]o [id number] 01/05/2032 [id number] / / [id number] [employer]Or tho Legion 9mm Posterior Stabilized High Flexion Knee 1-2 Insert [id number] - [id number] Implanted:Qty: 1 on 05/08/2022 by Billy Boss MD at [facility] [employer]o [id number] 08/08/2030 [id number] / / [id number] [employer]/Or tho Yanelis Ii Cemented Knee Left 2 Baseplate Tibial [id number] - [id number] Implanted:Qty: 1 on 05/08/2022 by Billy Boss MD at [facility] [employer] [id number] 07/22/2030 [id number] / / [id number] [employer] Simplex P Radiopaque Full Dose Cement Bone Sterile 6191-1-010 - [id number] Implanted:Qty: 1 on 05/08/2022 by Billy Boss MD at [facility] [employer] 11/05/2024 6191-1-010 / / [id number] [employer]Or tho Legion Cement Posterior Stabilize Knee Right 3n Component Femoral [id number] - [id number] Implanted:Qty: 1 on 12/25/2022 by Billy Boss MD at [facility] Right: Knee [employer] [id number] 10/10/2030 [id number] / / [id number] [employer] Simplex P Radiopaque Full Dose Cement Bone Sterile 6191-1-010 - [id number] Implanted:Qty: 1 on 12/25/2022 by Billy Boss MD at [facility] Right: Knee [employer] [id number] 04/07/2025 6191-1-010 / / [id number] [employer]/Or tho Yanelis Ii Cement Right Knee 2 Baseplate Tibial Titanium [id number] - [id number] Implanted:Qty: 1 on 12/25/2022 by Billy Boss MD at [facility] Right: Knee [employer] [id number] 02/19/2032 [id number] / / [id number] [employer]Or tho Legion 10mm Posterior Stabilize High Flex Knee 40587 Insert [id number] - [id number] Implanted:Qty: 1 on 12/25/2022 by Billy Boss MD at [facility] Right: Knee [employer] rtho [id number] 07/21/2027 [id number] / / [id number] [employer]Rich[employer]/Or tho Yanelis Ii 13mm 26mm Biconvex Knee Component Patellar Uhmwpe [id number] - [id number] Implanted:Qty: 1 on 12/25/2022 by Billy Boss MD at [facility] Right: Knee [employer] r[employer]o [id number] 09/21/2032 [id number] / / [id number] Procedures Procedure Name Priority Date/Time Associated Diagnosis Comments EGFR Routine 04/18/2024 9:57 AM TECHNICAL SOLUTION ARCHITECT HEMOGLOBIN A1C Routine 04/18/2024 9:57 AM TECHNICAL SOLUTION ARCHITECT LIPID PANEL Routine 04/18/2024 9:57 AM TECHNICAL SOLUTION ARCHITECT DEXA AXIAL SKELETON BONE DENSITY 1 OR MORE SITES Schedule Routine, Read Routine (OP Routine) 03/15/2024 2:43 PM CDT Asymptomatic menopausal state SCREENING MAMMOGRAM BILATERAL W IFEANYI Schedule Routine, Read Routine (OP Routine) 02/05/2024 2:30 PM CDT Encounter for screening mammogram for malignant neoplasm of breast from Last 3 Months or Most Recently Relevant to Health Maintenance Results * eGFR (04/18/2024 9:57 AM TECHNICAL SOLUTION ARCHITECT) eGFR 90 >=60 mL/min/1. 73 m2 Comment: [...] last reviewed 2021. Blood 04/18/2024 9:57 AM TECHNICAL SOLUTION ARCHITECT 04/18/2024 10:03 AM TECHNICAL SOLUTION ARCHITECT us Woody Pandey MD LAB BLOOD ORDERABLES Final Result [facility] [address] [facility] Department [place] [address] * (ABNORMAL) Hemoglobin A1c (04/18/2024 9:57 AM TECHNICAL SOLUTION ARCHITECT) Hgb A1C 7.1(H) 4.0 - 5.6 % Estimated Average Glucose 157 mg/dL [facility]EL[facility] LOZANO Comment: The ADA recommends reporting an estimated Average Glucose (eAG) with all Hemoglobin A1c results using the equation derived from a study of 507 normal and diabetic adults. Minority populations were underrepresented and children were not included. (Diabetes Care 31:3317-3294, 2008). The eAG is not equivalent to a fasting glucose. Blood 04/18/2024 9:57 AM TECHNICAL SOLUTION ARCHITECT 04/18/2024 10:03 AM TECHNICAL SOLUTION ARCHITECT us Woody Pandey MD LAB BLOOD ORDERABLES Final Result [facility] [address] [facility] Department [place] [address] * Lipid panel (04/18/2024 9:57 AM TECHNICAL SOLUTION ARCHITECT) Cholesterol 160 30 - 199 mg/dL Comment: [...] ratio 4 [facility]ELINA Blood 04/18/2024 9:57 AM TECHNICAL SOLUTION ARCHITECT 04/18/2024 10:03 AM TECHNICAL SOLUTION ARCHITECT us Woody Pandey MD LAB BLOOD ORDERABLES Final Result [facility] LO[facility] [address] [facility] Department [place] [address] * Dexa Axial Skeleton Bone Density 1 or 2 Site (03/15/2024 2:43 PM CDT) Anatomical Region Laterality Modality Body N/A Mammography 03/15/2024 6:11 PM CDT Narrative 03/15/2024 6:12 PM CDT EXAM DESCRIPTION: DEXA AXIAL SKELETON BONE DENSITY 1 OR MORE SITES REASON FOR STUDY: 73 y/o year old F with given history of: asymptomatic menopausal state 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 MF: DAVID Report ID: [id number] Reading Location: [address] Note Matt Leung MD - 03/15/2024 EXAM DESCRIPTION: DEXA AXIAL SKELETON BONE DENSITY 1 OR MORE SITES REASON FOR STUDY: 73 y/o year old F with given history of:asymptomatic menopausal state Soccer Player/Model: Mo-DV A (S/N [id number]) CLINICAL INFORMATION: Current height: 60 inches Maximum [...] Matt Leung M.D. MF: DAVID Report ID: [id number] Reading Location: [place] [address] Woody Pandey MD IMG DXA PROCEDURES Final [...] age 40, based on guidelines of the [place] [employer] (ACR Practice Parameter for the Performance of Screening and Diagnostic Mammography) and [place] [employer]. For women [...] Advance Directives For more information, please contact: [phone] * Full Code (Latest Code Status on File) Date Activated Date Inactivated Comments 12/25/2022 1:23 PM 12/28/2022 6:45 PM * Full Code Date Activated Date Inactivated Comments 05/08/2022 3:23 PM 05/09/2022 4:49 PM Care Teams Hog Cutter Relationship Specialty Start Date End Date Woody Pandey MD [address] [place] [address] PCP - General Internal Medicine 06/05/20
== END 2024-10-25 09:34 | disposition home or self-care (01) ==
PROVIDERS: PCP Internal Medicine; Visit Provider Physician Assistant Surgical
DX: S62.317A Displaced fracture of base of fifth metacarpal bone, left hand, initial encounter for closed fracture (principal); X58.XXXA Exposure to other specified factors, initial encounter; M19.042 Primary osteoarthritis, left hand
CPT/HCPCS: 73130

== ENCOUNTER 2024-11-21 10:15 | Outpatient (RCR) | payer MEDICARE, SELFPAY ==
--- NOTE | 2024-10-28 10:15 | OTOPEVAL1 ---
Assessment and note entered by Cooper Carmona, NERY/Davina, TAYLERT OT Evaluation Information 10/28/24 Assessment Status Evaluation Diagnosis S62.317A Displaced fracture of base of 5th metacarpal bone, left hand Subjective Information Patient fell and fractured her left 5th metacarpa.l She underwent CRPP 09/01/24 and subsequent pin removal on 09/27/24. She is reporting minimal pain, mostly with wrist ROM more than anything. Reporting residual stiffness and weakness. States she is having difficulties closing her hand and making a fist. 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 She reports she is not comfortable yet with returning to driving. Assessment OT Clinical Summary Patient referred to OT with left hand stiffness following left 5th metacarpal base fx s/p CRPP and pin removal. She presents with residual edema, stiffness, and weakness of the left wrist/hand/ fingers that inhibit return of functional use of her left hand. Skilled OT indicated for HEP instruction and progression, use of modalities, and therapeutic exercise/activities to facilitate improved functional ROM, strength, and use of her left hand. Plan of Care Interventions Therapeutic Exercise,Manual Therapy,Therapeutic Activities OT Services Indicated Yes Treatment Frequency and 1x/week for 5 visits Duration These treatments will address the objective and functional deficits as defined above. The patient will be advanced safely and appropriately in order for the patient to progress towards his/her prior level of function. Additional exercises will be introduced and as well as a comprehensive home exercise program upon discharge, if needed, ?to ensure carryover of functional gains achieved in the clinic. This treatment plan has been reviewed and agreement upon by the patient.
--- NOTE | 2024-10-28 10:16 | OPREHPOC ---
Outpatient Therapy Plan of Care This is a Multidisciplinary Plan of Care that may contain components documented by all disciplines (PT, OT, and ST.) OT Problem 1 OT Problem #1 Knowledge Deficit OT Goal 1 Goal / Goal Update 1. Patient to be independent with instructed materials. Target Visit 5 OT Problem 2 OT Problem #2 Impaired Range of Motion OT Goal 1 Goal / Goal Update 1. Patient to increase active ROM of the left wrist to 55 degrees of flexion to increase flexibility for driving. 2. Patient to increase active ROM of the left fingers to be able to make a fist, touching all finger tips to her palm, to increase flexibility for ADLs. Target Visit 5 OT Problem 3 OT Problem #3 Impaired Strength OT Goal 1 Goal / Goal Update 1. Patient to be able to progress to 2 lb. wrist strengthening in all planes without pain x20 reps. 2. Patient to be able to progress to yellow putty flake or shred roll operator strengthening x5 minutes without pain. Target Visit 5
--- NOTE | 2024-11-21 11:04 | OTOPDC ---
Assessment and note entered by Cooper Carmona, OTR/L, CHT OT D/C Summary 11/21/24 Assessment Status Discharge Diagnosis S62.317A Displaced fracture of base of 5th metacarpal bone, left hand Subjective Information Patient reports good progress with therapy. She reports she notices improvement with her ROM, flexibility, strength, and use. She reports improved functional use with cooking, lifting pans out of the oven, donning her deodorant, and wringing out a wash cloth. ROM improvements from the start of care: - Wrist flexion improved from 30 to 65 degrees - Wrist extension improved from 60 to 75 degrees - Tip to palm measurements improved from 2-3 cm gaps to 0-1 cm gaps - Tip to DPC measurements improved from 4 cm gaps to 2-3 cm gaps (L) pharmacy informaticist strength 20 lbs. (R) pharmacy informaticist strength 36 lbs. Reported Pain Level Pain Score 0: Self Report Additional Pain Score Comments No pain at rest. Pain can get up to 5-6/10, particularly in the left wrist if stressed suddenly. Assessment OT Clinical Summary Patient referred to OT with left hand stiffness following left 5th metacarpal base fx s/p CRPP and pin removal. She has progressed well with therapy with ROM, strength, and functional use. Wrist ROM returned to normal limits. Gross finger flexion into a composite fist and a hook fist are both making good progress, but are not WNL yet. Soft end feel with passive ROM of the IP joints of the fingers. Reviewed passive ROM and strengthening HEP. Patient reports she is ready for discharge and she demonstrates independence with all materials. D/C OT with HEP at this time. Thank you for this referral. OT Services Indicated No
--- NOTE | 2024-11-21 11:05 | OPREHPOC ---
Outpatient Therapy Plan of Care This is a Multidisciplinary Plan of Care that may contain components documented by all disciplines (PT, OT, and ST.) OT Problem 1 OT Problem #1 Knowledge Deficit OT Goal 1 Goal / Goal Update 1. Patient to be independent with instructed materials. ---OT D/C 11/21/24--- 1. Met Target Visit 5 OT Problem 2 OT Problem #2 Impaired Range of Motion OT Goal 1 Goal / Goal Update 1. Patient to increase active ROM of the left wrist to 55 degrees of flexion to increase flexibility for driving. 2. Patient to increase active ROM of the left fingers to be able to make a fist, touching all finger tips to her palm, to increase flexibility for ADLs. ---OT D/C 11/21/24--- 1. Met 2. Partially met, 1 cm gap with digits III-V Target Visit 5 OT Problem 3 OT Problem #3 Impaired Strength OT Goal 1 Goal / Goal Update 1. Patient to be able to progress to 2 lb. wrist strengthening in all planes without pain x20 reps. 2. Patient to be able to progress to yellow putty assistant director of residence life strengthening x5 minutes without pain. ---OT D/C 11/21/24--- 1. Not met - Pt indep with HEP 2. Not met - Pt indep with HEP Target Visit 5
== END 2024-11-22 09:23 | disposition home or self-care (01) ==
LOC: ANHOT 10:15
PROVIDERS: Visit Provider Physician Assistant Surgical
DX: S62.317D Displaced fracture of base of fifth metacarpal bone, left hand, subsequent encounter for fracture with routine healing (principal)
CPT/HCPCS: 97018; 97110; 97165

== ENCOUNTER 2025-04-14 08:50 | Emergency (ER) | payer MEDICARE, SELFPAY ==
--- NOTE | ~2025-04-14 | XR_ITS ---
EXAMINATION: XR chest 2V, 04/14/2025 10:01 [employer] HISTORY: dizziness rhonchi to rt mid lobe former smoker hx pneumonia COMPARISON: No comparisons available. Technique: 2 views obtained. Findings: The lungs are clear, no effusion. No pneumothorax. Heart is normal size. Mediastinal and hilar contours are within normal limits. Bony thorax no acute abnormality. Impression: No acute cardiopulmonary abnormality. Reviewed, dictated and finalized at location P. OLL SECRETARY Impression: No acute cardiopulmonary abnormality.
--- NOTE | 2025-04-14 08:52 | ECG_ITS ---
Test Date: 2025-04-14 09:19:50 Measurements Intervals [place] Rate: 69 P: 76 DE: 163 QRS: 60 QRSD: 102 T: 53 QT: 402 QTc: 433 Interpretive Statements SINUS RHYTHM ST DEVIATION AND T-WAVE ABNORMALITY, CONSIDER LAKESHA Electronically Signed On 04-14-2025 10:07:11 GROOVER OPERATOR by Stewart Burks D.O
[2025-04-14 09:00] VITALS: BP 129/64; PULSE 66
[2025-04-14 09:05] VITALS: BP 113/67; PULSE 68; RESP 20; TEMP 36.8; O2SAT 97
--- NOTE | 2025-04-14 09:14 | ED.DIZZY ---
HPI - Dizziness General Chief Complaint: Dizziness Stated Complaint: Dizziness Time Seen by Provider: 04/14/25 09:35 Source: patient and RN notes reviewed Mode of arrival: ambulatory Limitations: no limitations History of Present Illness HPI Narrative: 74-year-old female presents to the [facility] complaining of dizziness that started approximately 1-1/2 hours ago. Patient said while she was at work standing she started to feel hot, she reported feeling dizzy feeling like the room was spinning followed by a mild headache. Patient has a sit down she was worried she was going to fall. Patient to the dizziness has somewhat improved however she still has periodic episodes since. Patient reports the dizziness is worse if she turns her head too quickly or if she lays down. Patient says she is walking appropriate. Patient reports the pain of her head is a 5/10. Patient denies any vision changes, slurred speech, facial droop, one-sided weakness, lightheadedness, nausea, vomiting, loss of consciousness, chest pains, difficulty breathing, fevers, cough, black tarry stools, body aches or chills. Also reports having congestion and a runny nose. Patient reports a history of hypertension and diabetes. Patient said she has never had this episode before. Related Data Home Medications ?Medication ?Instructions ?Recorded ?Confirmed ?Last Taken ?Type amlodipine 2.5 mg tablet 2.5 mg PO DAILY 08/27/24 09/01/24 09/01/24 History hydrochlorothiazide 12.5 mg tablet 12.5 mg PO Q12H 08/27/24 09/01/24 08/31/24 History losartan 25 mg tablet 25 mg PO DAILY 08/27/24 09/01/24 08/31/24 History metformin 500 mg tablet,extended 500 mg PO BID 08/27/24 09/01/24 08/31/24 History release 24 hr omeprazole 20 mg capsule,delayed 20 mg PO .am 08/27/24 09/01/24 08/31/24 History release rosuvastatin 10 mg tablet 10 mg PO DAILY 08/27/24 09/01/24 08/31/24 History aspirin 81 mg tablet,delayed 81 mg PO DAILY 04/14/25 Unknown History release (Adult Low Dose Aspirin) mirabegron 25 mg tablet,extended mg PO 04/14/25 Unknown History release 24 hr Allergies Allergy/AdvReac Type Severity Reaction Status Date / Time No Known Allergies Allergy Verified 04/14/25 09:47 Review of Systems Review of Systems: CONSTITUTIONAL: Denies fever, body aches, chills, or sweats. EYES: Denies visual changes, redness, or discharge. ENT: Denies sore throat, or otalgia. Positive rhinorrhea congestion. CARDIOVASCULAR: Denies chest pain, palpitations, lightheadedness, or edema. Positive for dizziness. RESPIRATORY: Denies cough or dyspnea. GASTROINTESTINAL: Denies abdominal pain, nausea, vomiting, or diarrhea. GENITOURINARY: Denies dysuria or hematuria. SKIN: Denies rash or itching. MUSCULOSKELETAL: Denies back pain, joint pain, or myalgia. NEUROLOGIC: Positive for headache. Negative for numbness, loss of consciousness, focal weakness, slurred speech, facial droop, or weakness. PSYCHIATRIC: Denies anxiety or depression. All other systems reviewed are negative, except as documented in HPI. [facility] Past Medical History Medical History HTN (hypertension) Diabetes Obesity Social History Social History Second hand tobacco smoke exposure: No Alcohol intake: never Substance use: never Substance use type: does not use Living arrangements: with family Spiritual care concerns: No Comments At the time of my signature, I reviewed and agree with the nursing past medical, surgical, social, and family history. There is no relevant family history pertinent to the patient complaint. Exam Narrative: GENERAL: This is a well-nourished, well-developed adult, in no apparent distress. They are non ill-appearing, nontoxic appearing. HEAD: normocephalic, atraumatic. EYES: Sclera clear/white. Conjunctiva normal. Vision is grossly intact. Extraocular movements intact. Pupils PERRLA. Horizontal nystagmus present during Oriska-Hallpike maneuver. EARS: External ears normal, auditory canals clear and without drainage, TMs normal without perforation. Hearing grossly intact. NOSE: External nose normal with no obvious nasal discharge, nasal turbinates erythematous, no rhinorrhea. THROAT: Mucous membranes moist, posterior pharynx clear, without erythema or swelling. Uvula midline. Postnasal drip present. NECK: Neck supple, non-tender without lymphadenopathy, masses or thyromegaly. CARDIOVASCULAR: Regular rate and rhythm without murmurs, clicks, gallops, or rubs. No carotid bruits. RESPIRATORY: Rhonchi to mid right lobe. Breath sounds equal bilaterally. No wheezes, rales,. SKIN: warm, Dry, intact with no suspicious lesions or rash, good texture and turgor. NEURO: awake, alert, and oriented to person, place and time. There were no obvious focal neurologic abnormalities. Cranial nerve 2-12 grossly intact. No pronator drift. 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 Leg strength 5/5 equal bilaterally arm strength 5/5 equal bilaterally. No limb ataxia. No Inattention or extinction. No postural instability. EXTREMITIES: No joint tenderness, effusion, or edema noted. BACK: Nontender without deformity. Course Course Emergency Course: Portions of this record may have been created with voice recognition software Level of Care: Express Care Visit Vital Signs Vital signs: Vital Signs Pulse Rate 66 04/14/25 09:00 Blood Pressure 129/64 04/14/25 09:00 Temperature 98.3 F 04/14/25 09:05 Pulse Rate 75 04/14/25 10:15 Respiratory Rate 20 04/14/25 09:05 Blood Pressure 129/65 04/14/25 10:15 Pulse Oximetry 97 04/14/25 09:05 Oxygen Delivery Room Air 04/14/25 09:05 Reviewed MDM - Dizziness MDM Narrative Medical decision making narrative: EKG is a sinus rhythm with nonspecific T-wave abnormality, unchanged compared to previous EKG. Positive Oriska-Hallpike maneuver, horizontal nystagmus present. Patient neurologically intact. Symptoms appear to be peripheral vertigo. No other associated neurological symptoms. Patient is also appears congested she could be exacerbating symptoms. She does have a history of diabetes and hypertension. The status were obtained showed no evidence of orthostatic hypotension. Blood sugar is 120. Given abnormal lung sounds will obtain chest x-ray to assess for any pneumonia. NIH score 0. With suspicion for CVA. No carotid bruit auscultated. Offered patient ER transfer given her symptoms and she declined. Chest x-ray negative for any acute cardiopulmonary findings. His dizziness has subsided since she has been here. Patient was given a dose of meclizine. Patient reports feeling better. Will send her home with meclizine as needed for dizziness. Discussed physical exam findings. Advised supportive measures and signs/symptoms to go to the ER. Pt is appropriate for outpt treatment and f/u. Differential Diagnosis Differential diagnosis: Likely adverse reaction to drug, benign paroxysmal positional vertigo, orthostatic hypotension, cerebrovascular accident and other (Upper respiratory infection) Lab Data Attestation: I reviewed the patient's lab results. Labs: Lab Results 04/14/25 Range/Units 09:52 POC Capillary Glucose 120 H (65-105) mg/dl ECG Data EKG #1: ECG completion date: 04/14/25 ECG completion time: 09:19 Prior ECG tracings: available for review EKG Interpretation: normal rate, sinus rhythm, no ST changes, normal QRS, normal QT, NL axis, other (Nonspecific T-wave abnormality in V5 and V6. Appears unchanged compared to previous EKG.) and no acute changes Critical Care Time Critical Care Time Critical Care Time: No Discharge Plan Discharge Clinical Impression: Dizziness Patient Disposition: Home Condition: Stable Instructions: Vertigo (ED) Additional Instructions: Your EKG is sinus rhythm appears unchanged compared to previous EKG. Your chest x-ray is negative for any acute cardiopulmonary findings. Your blood sugar is unremarkable. Orthostatic vital signs were negative for low blood pressure. Please take meclizine as needed for dizziness. Drink plenty of fluids, change positions slowly. Follow-up with your PCP in 3-5 days. Please use Flonase 2 sprays each nostril daily to help with congestion. If you develop worsening dizziness, your unable to walk, chest pain, difficulty breathing, one-sided weakness, facial droop, slurred speech, confusion, the fall or injure yourself, he lose consciousness, vision changes, severe headaches, or any serious concerns please go to the ER immediately. Patient Language: Pashto Prescriptions: New meclizine 25 mg tablet 25 mg PO TID PRN (Reason: dizziness) 3 Days Qty: 14 0RF No Action amlodipine 2.5 mg tablet 2.5 mg PO DAILY losartan 25 mg tablet 25 mg PO DAILY omeprazole 20 mg capsule,delayed release(DR/EC) 20 mg PO .am metformin 500 mg tablet extended release 24 hr 500 mg PO BID rosuvastatin 10 mg tablet 10 mg PO DAILY hydrochlorothiazide 12.5 mg tablet 12.5 mg PO Q12H aspirin [Adult Low Dose Aspirin] 81 mg tablet,delayed release (DR/EC) 81 mg PO DAILY mirabegron 25 mg tablet extended release 24 hr PO Follow-up/Referrals: Katherin,MD Woody [Primary Care Provider] Time of Disposition: 10:46
[2025-04-14 10:05] VITALS: BP 135/65; PULSE 67
[2025-04-14 10:15] VITALS: BP 129/65; PULSE 75
[2025-04-14] MEDS: MECLIZINE HCL 25 MG TABLET PO (10:28)
== END 2025-04-14 10:53 | disposition home or self-care (01) ==
PROVIDERS: PCP Internal Medicine
DX: R42 Dizziness and giddiness (principal); I10 Essential (primary) hypertension; E11.9 Type 2 diabetes mellitus without complications; Z79.84 Long term (current) use of oral hypoglycemic drugs; E66.9 Obesity, unspecified; Z68.37 Body mass index [BMI] 37.0-37.9, adult; Z79.82 Long term (current) use of aspirin
CPT/HCPCS: 71046; 82948; 93005; 99213; A9270; G0463